=== PATIENT | female | born 1975 | race Caucasian/White ===

== ENCOUNTER 2019-10-27 23:37 | Emergency (ER) | payer OTHER, SELFPAY ==
--- NOTE | ~2019-10-27 | XR_ITS ---
EXAMINATION: XR G tube replacement w image DATE: 10/28/2019 02:27 INDICATION: Jejunostomy tube placement. TECHNIQUE: A single supine view of the abdomen was obtained. COMPARISON: None. FINDINGS: There are no dilated loops of bowel. There is a jejunostomy tube in expected position. Ther e is contrast in the jejunum including around the balloon. A 2.7 cm foreign body in left upper quadra nt may be coil embolization. IMPRESSION: 1. Jejunostomy tube in expected position. Reviewed, dictated and finalized at location A. GENCY ROOM DOCTOR
[2019-10-27 23:41] VITALS: BP 108/62; PULSE 73; RESP 16; TEMP 36.7; O2SAT 100
--- NOTE | 2019-10-28 00:26 | ED.GENADULT ---
HPI - General Adult General Chief complaint: Unspecified Stated complaint: clogged g-tube Time Seen by Provider: 10/28/19 00:22 Source: patient and RN notes reviewed Mode of arrival: EMS Limitations: no limitations History of Present Illness HPI narrative: Pt is a 44 y/o female who presents to the ED with c/o G-tube complications starting this evening. She notes that she has a Hx of stomach perforation, and states that she has had a G-tube in place for roughly the past 1.5 years. Pt notes that she hasn't had any difficulties with her current G-tube until this evening. She states that her tube became clogged while at [facility] earlier this evening. Pt notes that [place] staff tried unclogging the tube without any success. She currently reports lt sided ABD pain radiating into her back, but denies any fever or chills. MD complaint: G-tube Complications Location: abdomen Associated symptoms: other (lt sided ABD pain radiating into back) Related Data Allergies Allergy/AdvReac Type Severity Reaction Status Date / Time No Known Allergies Allergy Verified 10/28/19 02:33 Review of Systems Review of Systems: All systems reviewed & are unremarkable except as noted in HPI and below Constitutional: Constitutional: Denies chills and Denies fever(s) Gastrointestinal: Gastrointestinal: Reports abdominal pain (lt sided ABD pain radiating into back) and Reports other (clogged G-tube) PMFSH Past Medical History Medical History Gastric perforation Port-A-Cath in place Stomach ulcer Surgical History Surgical History Gastrostomy tube in place Social History Social History Smoking status: Never smoker Exam Const: General: cooperative, comfortable, no acute distress, well developed, alert and awake; No confusion Nutritional Appearance: other (frail) Orientation/consciousness: oriented to person, oriented to place, oriented to time, patient oriented x3 and No confusion Limitations: no limitations HENMT: Head: normal to inspection, normocephalic and atraumatic Chest: Chest palpation & inspection: other (Port-a-Cath in place in rt upper chest) Resp: Effort & Inspection: normal respiratory effort, able to speak in complete sentences, no respiratory distress and not tachypneic Auscultation: clear to auscultation bilaterally, no crackles, no rales, no rhonchi and no wheezes Cardio: Rate: regular rate Rhythm: regular rhythm GI: Inspection: other (G-tube in place) GI Palp: No abdominal tenderness, Yes Soft to palpation, No Tenderness to palpation present (GI), No Guarding due to palpation present (GI), No Rigid due to palpation and No Rebound tenderness present Auscultation: normal bowel sounds : General: Yes no CVA tenderness Skin: General skin exam: normal color, no rashes or lesions noted, elasticity normal and turgor normal Neuro: General: oriented to person, oriented to place, oriented to time, patient oriented x3, tone normal, moves all extremities, Normal light touch and pain sensation, no meningeal signs, no focal motor deficits, CN's II-XI intact bilaterally and No confusion Cranial nerves: Yes Equal, round and reactive pupils present Speech: No Abnormal speech present Sensory Exam: No Sensory deficit (Neuro) Extrem: General: normal to inspection, full ROM and capillary refill normal Psych: Appearance: grossly normal and well kempt Mental Status: mental status grossly normal Speech and movement: Normal speech and movement present Affect: normal affect Attitude: cooperative Thought process: Normal thought process present Thought content: Yes Normal thought content present Insight: Good insight present (Psych) Judgement: Good judgement present (Psych) Course Vital Signs Vital signs: Vital Signs Temperature 36.7 C 10/27/19 23:41 Pulse Rate 73 10/27/19 23:41
[2019-10-28] MEDS: HYDROMORPHONE HCL 1 MG/ML INJ 0.5 MG IV PUSH (01:07)
--- NOTE | 2019-10-28 01:38 | PC.NURSE ---
per edp, dried to irrigate g-tube, md maren made aware
[2019-10-28 03:16] VITALS: BP 110/59; PULSE 71; RESP 16; TEMP 36.8; O2SAT 100
--- NOTE | 2019-10-28 03:36 | PC.NURSE ---
Called [facility] at [phone] to transport patient.. [facility] here at [phone]
--- NOTE | 2019-10-29 00:13 | ED.GENADULT ---
HPI - General Adult General Chief complaint: Unspecified Stated complaint: clogged g-tube Time Seen by Provider: 10/28/19 00:22 Source: patient and RN notes reviewed Mode of arrival: EMS Limitations: no limitations History of Present Illness Location: abdomen Associated symptoms: other (lt sided ABD pain radiating into back) Related Data Allergies Allergy/AdvReac Type Severity Reaction Status Date / Time No Known Allergies Allergy Verified 10/28/19 02:33 Review of Systems Review of Systems: All systems reviewed & are unremarkable except as noted in HPI and below Constitutional: Constitutional: Denies body ache(s), Denies chills, Denies excessive sweating, Denies fatigue, Denies fever(s), Denies headache(s), Denies lethargy, Denies malaise, Denies weakness and Denies weight loss Eyes: Eyes: Denies blurry vision, Denies change in vision and Denies loss of vision ENT: Denies dizziness, Denies ear discharge, Denies headache(s), Denies lip swelling, Denies epistaxis, Denies nasal congestion, Denies neck pain, Denies throat swelling and Denies tongue swelling Cardiovascular: Cardiovascular: Denies chest pain, Denies chest pain at rest, Denies chest pain with activity, Denies diaphoresis, Denies rapid heart rate, Denies edema, Denies irregular heart rhythm, Denies lightheadedness, Denies palpitations, Denies dyspnea and Denies dyspnea on exertion Respiratory: Respiratory: Denies chest congestion, Denies cough, Denies hemoptysis, Denies dyspnea and Denies dyspnea on exertion Gastrointestinal: Gastrointestinal: Denies abdominal pain, Denies melena, Denies hematochezia, Denies diarrhea, Denies nausea, Denies vomiting and Denies hematemesis Musculoskeletal: Musculoskeletal: Denies abnormal gait, Denies deformity, Denies joint swelling, Denies limited range of motion, Denies neck pain and Denies numbness Neurologic: Denies Abnormal speech present, Denies abnormal gait, Denies confusion, Denies dizziness, Denies headache(s), Denies focal weakness, Denies loss of vision, Denies numbness, Denies Other visual disturbances, Denies Sensory deficit (Neuro) and Denies weakness Psychiatric: Psychiatric: Denies confusion, Denies depression, Denies auditory hallucinations, Denies homicidal ideation and Denies suicidal ideation Endocrine: Endocrine: Denies cold intolerance, Denies excessive sweating, Denies fatigue, Denies heat intolerance and Denies palpitations Hematologic/Lymphatic: Hematologic/Lymphatic: Denies easy bleeding and Denies easy bruising Allergic/Immunologic: Allergic/Immunologic: Denies lip swelling, Denies throat swelling and Denies tongue swelling PMF Past Medical History Medical History Gastric perforation Port-A-Cath in place Stomach ulcer Surgical History Surgical History Gastrostomy tube in place Social History Social History Smoking status: Never smoker Exam Const: General: cooperative, comfortable, no acute distress, alert and awake Orientation/consciousness: oriented to person, oriented to place, oriented to time, patient oriented x3 and No confusion Limitations: no limitations HENMT: Head: normal to inspection, normocephalic and atraumatic Ears: hearing grossly normal bilaterally, TM normal on the right and TM normal on the left General nose exam: Normal external nose present, Normal nares present and No nasal discharge present Face and sinus: normal facial exam Mouth: Yes Normal oral and palatal mucosa present, Yes lip normal, Yes tongue normal and Yes oropharynx normal Throat: posterior oropharynx normal, tonsils normal and uvula midline Eyes: General: appearance normal, both eyes and all related structures Pupils: Equal, round and reactive pupils present EOM: EOMs intact bilaterally Neck: Neck: normal visual inspection, full ROM, no lymphadenopathy and no men
== END 2019-10-28 03:40 ==
PROVIDERS: Emergency Provider Emergency Medicine
DX: K94.23 Gastrostomy malfunction (principal)
CPT/HCPCS: 49450; 96374; 99284; J1170

== ENCOUNTER 2019-10-30 13:15 | Inpatient (IN) | payer OTHER, SELFPAY ==
[2019-10-30 13:13] VITALS: BP 128/83; PULSE 74; RESP 13; TEMP 36.4; O2SAT 100
--- NOTE | 2019-10-30 13:19 | ED.RECABL ---
HPI - Recheck/Abnormal Lab/Rx General Chief Complaint: Recheck/Abnormal Lab/Rx Stated Complaint: abnormal labs Time Seen by Provider: 10/30/19 13:17 Source: patient Mode of arrival: EMS Limitations: no limitations History of Present Illness HPI narrative: A 44 y/o female pt presents to the ED, via EMS, from [facility], with c/o abnormal potassium level. Pt is in the nursing facility for short term rehabilitation for TPN following complications from a gastric bypass surgery she had 10 years ago. She states she was hospitalized at [facility] for ulcers, and a hole in her stomach, and was discharged, with TPN, to [facility] to help with strengthening. Pt has a feeding tube and is NPO besides ice chips until her follow-up with her surgeon on November 22. Dr. Donato Pope at [facility] advised pt be seen in the ED for a potassium level of 2.7. Pt is complaining of generalized weakness, ABD pain, and upper back pain, but denies fever, SOB, or CP. She rates her pain as an 8 on the pain scale and notes her pain is worsening since being discharged from [facility]. complaint: abnormal lab (potassium 2.7) Initial visit (ago): hour(s) Description of abnormal result: potassium level 2.7 Context: other (sent from nursing facility for abnormal lab result) Associated symptoms: abdominal pain and other (upper back pain, generalized weakness) Related Data Allergies Allergy/AdvReac Type Severity Reaction Status Date / Time No Known Allergies Allergy Verified 10/28/19 02:33 Review of Systems Review of Systems: All systems reviewed & are unremarkable except as noted in HPI and below Constitutional: Constitutional: Denies fever(s) and Reports weakness (generalized) Cardiovascular: Cardiovascular: Denies chest pain Respiratory: Respiratory: Denies dyspnea Gastrointestinal: Gastrointestinal: Reports abdominal pain Musculoskeletal: Musculoskeletal: Reports back pain (upper) [facility] Past Medical History Medical History (Updated 10/30/19 @ 15:01 by Carey Martínez MD) Gastric perforation On total parenteral nutrition (TPN) Port-A-Cath in place Stomach ulcer Surgical History Surgical History (Updated 10/30/19 @ 14:52 by Lacho Ramirez ICEX) Gastrostomy tube in place History of gastric bypass Social History Social History (Updated 10/30/19 @ 14:53 by Lacho Ramirez ICEX) Smoking status: Never smoker Living arrangements: half-way Additional living arrangements comments: short term rehabilitation Exam Const: General: cooperative, no acute distress and alert Nutritional Appearance: malnourished Orientation/consciousness: patient oriented x3 Limitations: no limitations HENMT: Mouth: Yes lip normal and Yes dry mucous membranes Resp: Effort & Inspection: normal respiratory effort Auscultation: clear to auscultation bilaterally Cardio: Rate: regular rate Rhythm: regular rhythm GI: GI Palp: Yes abdominal tenderness (diffuse) and Yes Soft to palpation Auscultation: normal bowel sounds Skin: General skin exam: normal color Neuro: General: patient oriented x3 Cognition (Neuro): normal cognition Speech: normal speech Extrem: General: normal to inspection, full ROM and no clubbing, cyanosis or edema Psych: Mental Status: mental status grossly normal Affect: normal affect Attitude: cooperative Course Course Emergency Course: Patient with severe hypokalemia, currently on TPN after surgery for perforated ulcer. Patient is also status gastric bypass surgery in the remote past. Patient significantly malnourished in appearance. IV potassium initiated in the emergency department through patient's Port-A-Cath and patient admitted to hospitalist service for further care of her hypokalemia. Consultations Consultation #1: Discussed case with PAVEL Almonte for the hospitalist, Dr. Fitzgerald. Accepts admission. Date: 10/30/19 Time: 14:20 Vital Signs Vital signs: Vital Signs Temperature 97.6 F 10/30/19 13:13 Pul
--- NOTE | 2019-10-30 13:25 | ECG_ITS ---
SINUS RHYTHM WITH SHORT CA INTERVAL CANNOT RULE OUT SEPTAL INFARCT, AGE INDETERMINATE BORDERLINE ST-T WAVE ABNORMALITY- LATERAL LEADS ABNORMAL ECG Electronically Signed On 10-30-2019 17:33:14 GROUNDS AND NURSERY SPECIALIST by Saurabh Cook D.O. NO PREVIOUS ECG AVAILABLE FOR COMPARISON [facility]
[2019-10-30 13:50] LABS: Basophils Percent Auto 0.5 % (0.2-1.2); Eosinophils Absolute Auto 0.2 K/mm3 (0-0.3); Eosinophils Percent Auto 2.4 % (0-4.4); Immature Granulocyte Absolute 0.02 K/mm3 (0.00-0.031); Immature Granulocyte Percent A 0.3 % (0-0.5); Lymphocytes Absolute Auto 2.19 K/mm3 (0.9-3.2); Lymphocytes Percent Auto 35.2 % (18.3-44.2); Mean Corpuscular HGB Conc 33.3 g/dl (32-36); Mean Corpuscular Hemoglobin 31.9 pg (26-34); Mean Corpuscular Volume 95.7 fl (80-100); Monocytes Absolute Auto 0.7 K/mm3 (0.1-0.6); Monocytes Percent Auto 10.8 % (2.6-8.5); Neutrophils Absolute Auto 3.2 K/mm3 (1.3-6.7); Neutrophils Percent Auto 50.8 % (45.5-73.1); Platelet Count Result 543 k/mm3 (150-375); Red Blood Count 2.82 M/mm3 (4.2-5.4); Red Cell Distribution Width 19.1 % (11.5-14.5); White Blood Count 6.2 K/mm3 (4.5-10.0)
[2019-10-30 14:10] LABS: Alanine Aminotransferase 18 U/L (4-35); Albumin Level 2.6 g/dL (3.5-5.1); Alkaline Phosphatase 139 U/L (38-126); Aspartate Amino Transferase 19 U/L (14-36); Bilirubin,Total 0.2 mg/dL (0.2-1.3); Blood Urea Nitrogen 23 mg/dL (7-17); Calcium 7.7 mg/dL (8.4-10.2); Carbon Dioxide 29 mmol/L (22-30); Chloride 97 mmol/L (98-107); Estimated CRCL calculation 94 ml/min; Estimated Glomerular Filt Rate > 60; Glucose 90 mg/dL (65-105); Magnesium 2.2 mg/dL (1.6-2.3); Phosphorus 3.2 mg/dL (2.5-4.5); Potassium 2.6 mmol/L (3.4-5.0); Sodium 136 mmol/L (137-145)
[2019-10-30] MEDS: SODIUM CHLORIDE 0.9% IV 1,000 ML 150 ML IV CONT (14:40)
--- NOTE | 2019-10-30 14:50 | PM.IMHP ---
H&P: HPI History of Present Illness Chief complaint: Hypokalemia. Narrative: Irina Damon is a 44-year-old female who was sent to the emergency department earlier today via EMS from [facility] for evaluation and treatment of hypokalemia. She had a gastric bypass done about 10 years ago, and has had issues with peptic ulcers since that time. A couple of years ago she had a perforated ulcer and about a month ago she once again began having issues with ulcers. She was transferred from the local hospital in [place], [place] to [facility] and was there for approximately 2 weeks time. She did not have surgical intervention at that time, but is currently on TPN and has a follow-up with her surgeon in the coming weeks. She has been at [facility] for approximately 1 week for short-term rehab, and she tells me that she has been needing potassium supplementation on a daily basis. Despite this, the patient does not believe there were any changes made to her TPN. Potassium today was 2.6 and she is being admitted in this setting. At the time my evaluation, she complains of diffuse abdominal pain, dull and achy but occasionally sharp. It sounds as though she has pain on a daily basis and it is not different than baseline. She is typically given Tylenol for her pain, which she says is not strong enough and is requesting Dilaudid. She has not had fever, chills, or sweats. No recent cold or flu symptoms. She denies chest pain shortness of breath. She notes having to formed stools each day. No dysuria or hematuria. Of note, the patient's history and timeline seem to be a bit questionable and I am not certain how accurate her history is. Review of Systems Review of Systems: All systems reviewed & are unremarkable except as noted in HPI and below PMFSH Past Medical History Medical History (Updated 10/30/19 @ 15:13 by Brina Santizo PA-C) Peptic ulcer disease Perforated peptic ulcer Status post exploratory laparotomy in ~ 2018 Port-A-Cath in place Surgical History Surgical History (Updated 10/30/19 @ 15:07 by Brina Santizo PA-C) Gastrostomy tube in place History of gastric bypass Approximately 2009. Status post exploratory laparotomy For reported perforated gastric ulcer in about 2018. Status post tonsillectomy and adenoidectomy Family History Family History (Updated 10/30/19 @ 15:08 by Brina Santizo PA-C) Mother Acute myocardial infarction Mother of an [place] in her sleep at age 69. Father Diabetes mellitus Heart disease Chronic kidney disease Social History Social History (Updated 10/30/19 @ 15:09 by Brina Santizo PA-C) Social History: Patient lives in [place], [place]. She is single and has no children. She has a pug that lives at home with her. 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 She smokes 1 pack of cigarettes per day off and on for about 20 years and quit 2 months ago. She denies alcohol and drug use. Living arrangements: detention Additional living arrangements comments: short term rehabilitation Meds Home Medications and Allergies Allergies Allergy/AdvReac Type Severity Reaction Status Date / Time No Known Allergies Allergy Verified 10/28/19 02:33 Vital Signs Vital Signs - 24 hr 10/30/19 13:13 Temperature 97.6 F Pulse Rate 74 Respiratory Rate 13 Blood Pressure 128/83 Pulse Oximetry 100 Exam Narrative: Exam Narrative: General: Cachectic, frail female sitting up in bed in no acute distress. She appears much older than her stated age. HEENT: Normocephalic, atraumatic. PERRL, EOMI. Sclerae anicteric. Oral mucosa moist. Most teeth are missing and those that remain appear unhealthy. Oropharynx clear. Neck: Supple. Chest: Port-A-Cath in the right anterior chest. Respiratory: Lungs are clear to auscultation bilaterally. Cardiovascular: Regular rate and rhythm wi
[2019-10-30 15:05] VITALS: BP 110/57; PULSE 77; O2SAT 100
--- NOTE | 2019-10-30 15:10 | ADMGEN ---
This patient, Irina Damon, was admitted to Medical Room 348-. Patient/family oriented to hospital policies and general routines including ID bracelet, bed and alarms, visiting hours, pain management, procedures, bathroom and other care routines, personal items, smoking policy, room service/diet, and visiting hours. Valuables list has been completed. Information on how to activate the Rapid Response Team has been discussed. Patient/Family are encouraged to report perceived risks to care and to ask questions if they do not understand what they are told or what they should do.
[2019-10-30 15:23] VITALS: BMI 15.9
[2019-10-30 15:24] VITALS: BP 116/71; PULSE 73; RESP 20; TEMP 36.4; O2SAT 100
[2019-10-30 15:51] VITALS: BMI 15.9
[2019-10-30 15:52] VITALS: BMI 15.9
[2019-10-30 16:00] VITALS: PULSE 74
--- NOTE | 2019-10-30 19:49 | PC.NURSE ---
Spoke with Elizabeth at [facility], and we clarified medications list for the patient. Pt is a poor historian.
[2019-10-30 20:00] VITALS: PULSE 76
[2019-10-30 20:55] LABS: Potassium 2.8 mmol/L (3.4-5.0)
[2019-10-30 21:14] VITALS: BP 109/64; PULSE 68; RESP 16; TEMP 36.9; O2SAT 100
[2019-10-30] MEDS: POTASSIUM CHLORIDE 20 MEQ PACKET (FOR LIQUID) 40 MEQ FEED TUBE (22:23)
[2019-10-30] MEDS: KCL 20 MEQ/SW 100 ML 100 ML 50 MEQ IVPB (22:23)
[2019-10-31] VITALS: PULSE 69
[2019-10-31] MEDS: SERTRALINE HCL 50 MG TABLET 150 MG FEED TUBE (00:27)
[2019-10-31 04:00] VITALS: PULSE 71
[2019-10-31 05:50] LABS: Hematocrit 25.6 % (37.0-47.0); Hemoglobin 8.8 g/dL (12.0-15.0); Mean Corpuscular HGB Conc 34.4 g/dl (32-36); Mean Corpuscular Hemoglobin 32.2 pg (26-34); Mean Corpuscular Volume 93.8 fl (80-100); Mean Platelet Volume 9.4 fl (7.4-10.4); Platelet Count Result 499 k/mm3 (150-375); Red Blood Count 2.73 M/mm3 (4.2-5.4); Red Cell Distribution Width 18.9 % (11.5-14.5); White Blood Count 7.7 K/mm3 (4.5-10.0)
[2019-10-31 06:00] VITALS: BP 110/62; PULSE 73; RESP 14; TEMP 36.7; O2SAT 100
[2019-10-31 06:02] LABS: Albumin Level 2.4 g/dL (3.5-5.1); Blood Urea Nitrogen 10 mg/dL (7-17); Calcium 7.9 mg/dL (8.4-10.2); Carbon Dioxide 28 mmol/L (22-30); Chloride 102 mmol/L (98-107); Estimated CRCL calculation 103 ml/min; Estimated Glomerular Filt Rate > 60; Glucose 83 mg/dL (65-105); Phosphorus 2.7 mg/dL (2.5-4.5); Potassium 3.4 mmol/L (3.4-5.0); Sodium 138 mmol/L (137-145)
[2019-10-31 08:00] VITALS: PULSE 70
[2019-10-31] MEDS: SUCRALFATE 1 GM TABLET FEED TUBE (08:48)
[2019-10-31] MEDS: LOPERAMIDE HCL 2 MG CAPSULE 4 MG FEED TUBE (08:49)
[2019-10-31] MEDS: GABAPENTIN 300 MG CAPSULE 600 MG PO (08:49)
[2019-10-31] MEDS: ONDANSETRON HCL ODT 4 MG TABLET XX (08:50)
[2019-10-31] MEDS: CHOLECALCIFEROL 1,000 UNIT TABLET 5000 UNITS FEED TUBE (08:50)
[2019-10-31] MEDS: MULTIVITAMIN HEMATINIC (*BKC) TABLET 1 TABLET FEED TUBE (08:50)
[2019-10-31] MEDS: POTASSIUM CHLORIDE 20 MEQ PACKET (FOR LIQUID) 40 MEQ FEED TUBE (11:20)
--- NOTE | 2019-10-31 11:24 | PM.DS ---
DS: Diagnosis Admitting Diagnosis Admitting Diagnosis: Hypokalemia Discharge Diagnosis (1) Hypokalemia: Code(s): E87.6 - Hypokalemia Status: Acute (2) Severe protein-calorie malnutrition: Code(s): E43 - Unspecified severe protein-calorie malnutrition Status: Acute (3) Peptic ulcer disease: Code(s): K27.9 - Peptic ulcer, site unspecified, unspecified as acute or chronic, without hemorrhage or perforation Status: Acute (4) On total parenteral nutrition (TPN): Code(s): Z78.9 - Other specified health status Status: Acute DS: Summary Hospital Course Reason for hospitalization: 44yo female on TPN with functioning GTube here for hypokalemia. Please see H&P for details. Hospital Course: Patient was seen in the emergency room. She is hemodynamically stable. Her EKG showed no significant acute findings. Blood cultures were collected secondary to the fact she has a port in place but patient is not having any fever, elevated white count or other symptoms of sepsis. Hemoglobin was low at 9. Repeat a was relatively unchanged. Platelet count slightly elevated 543 and has trended downward . Potassium was 2.6. This was replaced and this morning is 3.4. Calcium is low but most likely related to her low albumin. Continued her tube feedings. We continued majority home medications. Protonix not on her home med list but patient states that she should be on this. Patient did well is able be discharged back to the rehab facility on 10/31/2019 Time Spent with Patient Time attestation: Total time spent providing and/or coordinating discharge services:32 minutes Time spent: Greater than 30 minutes Exam Narrative: Exam Narrative: Gen - NARD Chest - CTA bilaterally, nml RR.Port-A-Cath in the right upper chest CV - RRR S1/S2 Abd - soft. Scaphoid. Positive bowel sounds. Peg tube site left of midline with dressing that is clean and dry. Ext - No pedal edema Psych - Nml mood and affect. Alert, pleasant and cooperative. Skin - Hirsute chin and jawline. DS: Data Data Completed and Pending Labs on day of discharge: Labs from last 24 hours 10/31/19 10/31/19 10/30/19 05:38 05:38 20:26 WBC 7.7 RBC 2.73 L Hgb 8.8 L Hct 25.6 L MCV 93.8 MCH 32.2 MCHC 34.4 RDW 18.9 H Plt Count 499 H MPV 9.4 Immature Gran % (Auto) Neut % (Auto) Lymph % (Auto) [place] % (Auto) Eos % (Auto) Baso % (Auto) Lymph # (Auto) [place] # (Auto) Eos # (Auto) Baso # (Auto) Abs Immat Gran (auto) Absolute Neuts (auto) Absolute Nucleated RBC Nucleated RBC % Sodium 138 Potassium 3.4 2.8 L* Chloride 102 Carbon Dioxide 28 BUN 10 D Creatinine 0.40 L Estim Creat Clear Calc 103 Estimated GFR > 60 Glucose 83 Calcium 7.9 L Phosphorus 2.7 Magnesium Total Bilirubin AST ALT Alkaline Phosphatase Total Protein Albumin 2.4 L 10/30/19 10/30/19 13:45 13:45 WBC 6.2 RBC 2.82 L Hgb 9.0 L Hct 27.0 L MCV 95.7 MCH 31.9 MCHC 33.3 RDW 19.1 H Plt Count 543 H MPV 10.0 Immature Gran % (Auto) 0.3 Neut % (Auto) 50.8 Lymph % (Auto) 35.2 [place] % (Auto) 10.8 H Eos % (Auto) 2.4 Baso % (Auto) 0.5 Lymph # (Auto) 2.19 [place] # (Auto) 0.7 H Eos # (Auto) 0.2 Baso # (Auto) 0.0 Abs Immat Gran (auto) 0.02 Absolute Neuts (auto) 3.2 Absolute Nucleated RBC 0.0 Nucleated RBC % 0.0 Sodium 136 L Potassium 2.6 L* Chloride 97 L Carbon Dioxide 29 BUN 23 H Creatinine 0.40 L Estim Creat Clear Calc 94 Estimated GFR > 60 Glucose 90 Calcium 7.7 L Phosphorus 3.2 Magnesium 2.2 Total Bilirubin 0.2 AST 19 ALT 18 Alkaline Phosphatase 139 H Total Protein 6.0 L Albumin 2.6 L Discharge Plan Discharge Attending physician on discharge: Jose Manuel Paredes Discharging Clinician: Jose Manuel Paredes Anticipated Discharge [place]
--- NOTE | 2019-11-02 11:06 | PC.NURSE ---
MRSA is negative. Dr. Reggie cordova.
--- NOTE | 2019-11-05 13:43 | PC.NURSE ---
Blood cx is negative. Dr. Paredes is aware.
== END 2019-10-31 13:23 | DRG 425 ==
LOC: ANHED 14:30 → ANH3MED 14:37
PROVIDERS: Physician Assistant; Admitting Provider Family Medicine; Emergency Provider Emergency Medicine; Visit Provider Internal Medicine
DX: E87.6 Hypokalemia (principal); Z98.84 Bariatric surgery status; Z87.11 Personal history of peptic ulcer disease; E43 Unspecified severe protein-calorie malnutrition; K27.9 Peptic ulcer, site unspecified, unspecified as acute or chronic, without hemorrhage or perforation; Z68.1 Body mass index [BMI] 19.9 or less, adult
CPT/HCPCS: 36415; 80053; 80069; 83735; 84100; 84132; 85025; 85027; 87040; 87081; 93005; 96365; 96375; 99285; A9270; J0131; J3480; J7030

== ENCOUNTER 2019-11-09 23:12 | Inpatient (IN) | payer OTHER, SELFPAY ==
--- NOTE | ~2019-11-09 | XR_ITS ---
XR chest 1V portable DATE: 11/11/2019 09:32 INDICATION: Aspiration pneumonia, pneumonitis TECHNIQUE: Portable upright AP chest on 11/11/2019 at 0926 hours COMPARISON: Portable AP chest on 11/09/2019 11/10/2019 CT chest abdomen pelvis FINDINGS: There is interval pulmonary vascular congestion and redistribution and prominence of the mi nor fissure and pulmonary interstitium, consistent with congestive changes and pulmonary interstitial and subpleural edema since 11/09/2019. There are patchy infiltrates in the central and lower lung zones, greatest in the left lower lobe. Th e infiltrates may be due to any combination of pulmonary edema, pneumonia and aspiration. Small pleur al effusions are suggested. Heart size appears within normal limits considering magnification associated with AP projection. Right Port-A-Cath catheter tip overlies the upper right atrium. IMPRESSION: Interval congestive changes, pulmonary edema and increased bilateral infiltrates since 11/09/2019 Reviewed, dictated and finalized at location B. GING COGNITIVE ENGINEER IMPRESSION: Interval congestive changes, pulmonary edema and increased bilatera l infiltrates since 11/09/2019
--- NOTE | ~2019-11-09 | CT_ITS ---
EXAMINATION: CT facial & cervical spine wo EXAM DATE: 11/09/2019 23:55 INDICATION: Fall, head injury. TECHNIQUE: Spiral CT of the facial bones was acquired in the axial plane. Coronal reformatted images were also reviewed. Spiral CT of the cervical spine was performed without contrast. Axial images we re reviewed. Coronal and sagittal reformatted images were also reviewed. The dose-length product (DL P) for this examination was 112.27 mGy-cm. The exposure was tailored according to patient size, and iterative reconstruction (ASIR) was used as additional dose reduction technique. There is no prior s tudy for comparison. FINDINGS: FACIAL CT: There are no displaced nasal bone fractures. The mandible, sinuses and orbits are intact. The orbits, globes and extraocular muscles are unremarkable. Some debris or blood within the edith al cavity. Multiple dental cavities. CERVICAL CT: There is no evidence of acute cervical fracture. The odontoid process is intact. Pre-d ens space is normal. Prevertebral soft tissue is normal. There are no soft tissue abnormalities [place] ntified. There is no disc space widening or traumatic vertebral body subluxation suspected. Vertebr al body and disc heights are well-maintained. A detailed level by level evaluation of spondylosis c an be added as addendum if requested. IMPRESSION: 1. No acute facial or cervical fracture. 2. Some debris or blood within the nasal cavity. Reviewed, dictated and finalized at location A. DESULFURIZER
--- NOTE | ~2019-11-09 | XR_ITS ---
EXAMINATION: XR chest 1V portable EXAM DATE: 11/09/2019 23:39 INDICATION: Syncope. TECHNIQUE: Portable AP frontal chest x-ray was obtained. There is no prior study for comparison. FINDINGS: Right-sided portacatheter. Line is intact. The lungs are clear. There are no pleural effus ions. The cardiomediastinal silhouette is within normal limits. There is no pneumothorax suspected. The bones and soft tissues are unremarkable. IMPRESSION: No acute cardiopulmonary findings. Reviewed, dictated and finalized at location A. ACE MECHANIC
--- NOTE | ~2019-11-09 | CT_ITS ---
EXAMINATION: CTA chest abdomen pelvis DATE: 11/10/2019 02:54 INDICATION: Upper back pain and abdominal pain TECHNIQUE: Computed tomographic angiography (CTA) of the chest, abdomen, and pelvis was performed wit hout and with 100 mL Omnipaque-350 intravenous contrast. Volume-rendered 3D-reconstructions of the ao rta and large arteries were constructed by the technologist on a separate workstation. The dose-lengt h product was 460 mGy-cm. COMPARISON: None FINDINGS: Chest: Small left pleural effusion with compressive atelectasis along the base of the left lower lobe. Patch y groundglass opacities in the lingula and left lower lobe. Right lung is clear. No pneumothorax or r ight-sided pleural effusion. Although not performed as a pulmonary embolism protocol there is excelle nt contrast opacification of the pulmonary arteries which demonstrates no pulmonary embolism. Heart s ize is normal. No pericardial effusion. Thoracic aorta is normal in caliber with no dissection. Mildl y prominent left hilar and subcarinal lymph nodes which are likely reactive. Thoracic dextrocurvature which may be positional. Mild thoracic spondylosis. Chronic appearing mild anterior wedging at T12 a nd L1. Abdomen and pelvis: Evaluation of portions of the abdomen particularly the bowels is limited by motion artifact. 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 Metallic likely embolization coils in the region of the distal splenic artery. Additional postoperative changes consistent with prior gastric b ypass procedure with small bowel anastomosis in the left lower quadrant. Ostomy left lower quadrant i s a percutaneous jejunostomy tube with bulb inflated within the bowel in the right hemipelvis. No bow el obstruction. Normal short appendix versus appendiceal stump without surrounding inflammatory stran ding to suggest acute appendicitis. Heterogeneous enhancement of the liver likely related to arterial phase of contrast. Small amount of ascites scattered throughout the abdomen and pelvis including around the otherwise normal-appearing g allbladder. Pancreas, bilateral adrenal gland and kidneys are normal. There is mild mesenteric, perip ortal and body wall edema. Bladder, uterus and adnexa are unremarkable. No pathologically enlarged ab dominal or pelvic lymphadenopathy. Mild scattered degenerative skeletal changes. Bones are otherwise unremarkable. Mild scattered atherosclerotic disease along the abdominal aorta and bilateral common iliac arteries without hemodynamically significant stenosis. No aneurysm or dissection. 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 IMPRESSION: 1. No aortic aneurysm or dissection. 2. Airspace disease in the left lower lobe with differential including pneumonia, aspiration pneumoni tis and atelectasis with small left pleural effusion. 3. Nonspecific mesenteric, periportal and body wall edema with small amount of ascites in the abdomen and pelvis. 4. Postoperative changes including splenectomy and splenic artery embolization, gastric bypass proce dure and left lower quadrant percutaneous jejunostomy tube placement. Reviewed, dictated and finalized at location A. SWING DEVELOPER IMPRESSION: 1. No aortic aneurysm or dissection. 2. Airspace disease in the left lower lobe with differential including pneumoni a, aspiration pneumonitis and atelectasis with small left pleural effusion. 3. Nonspecific mesenteric, periportal and body wall edema with small amount of ascites in the abdomen and pelvis. 4. Postoperative changes including splenectomy and splenic artery embolization , gastric bypass procedure and left lower quadrant percutaneous jejunostomy tub e placement.
--- NOTE | ~2019-11-09 | CT_ITS ---
EXAMINATION: CT brain wo con EXAM DATE: 11/09/2019 23:55 INDICATION: Syncope. Posterior head injury and pain. TECHNIQUE: Spiral CT of the head was performed without contrast. Axial, coronal and sagittal images were reviewed. The dose-length product (DLP) for this examination was 605.33 mGy-cm. The exposure w as tailored according to patient size, and iterative reconstruction (ASIR) was used as additional dos e reduction technique. There is no prior study for comparison. FINDINGS: There is no acute intraparenchymal hemorrhage. No evidence of intraparenchymal brain mass lesion. No evidence of acute infarction. There is no mass effect or midline shift. The ventricles are normal in size. There are no extra-axial collections. There are no acute calvarial fractures. T he orbits are unremarkable. Soft tissue is unremarkable. The visualized sinuses and mastoid air angie ls are well aerated. IMPRESSION: No acute intracranial findings. Reviewed, dictated and finalized at location A. AND GAME WARDEN
--- NOTE | 2019-11-09 23:17 | ED.FALL ---
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 Pt states that she felt diaphoretic and dizzy before she lost consciousness while walking outside. Pt states that she face planted and landed on the right side of her face. Pt is on TPN and has a G-tube placed. Pt states that she was supposed to be hooked up to the TPN at 10 PM, but she states that she was unable to tonight d/t her fall. Pt states that she gets the full amount of TPN. Pt has been taking Tylenol, but with no relief. Pt also reports diaphoresis, subjective fever, and back pain, but denies nausea and vomiting. MD complaint: fall Onset (ago): minute(s) Fall from: standing Place fall occurred: [facility] (outside of) Loss of consciousness: yes Prolonged down time: unclear Symptoms prior to fall: dizziness and other (diaphoretic) Location of injury: face (right sided) Associated symptoms (after fall): other (diaphoresis, subjective fever, back pain, right sided facial pain) Related Data Home Medications Medication Instructions Recorded Confirmed artificial saliva (cmce-lytes) 3 spray PO TID PRN 10/30/19 11/10/19 ergocalciferol (vitamin D2) 6.3 ml FEEDING TUBE WEEKLY 10/30/19 11/10/19 gabapentin 600 mg FEEDING TUBE TID 10/30/19 11/10/19 hydroxyzine HCl 10 mg FEEDING TUBE QID PRN 10/30/19 11/10/19 iron sucrose 500 mg IV WEEKLY 10/30/19 11/10/19 lidocaine 1 patch TOPICAL DAILY 10/30/19 11/10/19 loperamide 4 mg FEEDING TUBE QID PRN 10/30/19 11/10/19 bdotvagn-unf-tnlybab gluconate 15 ml FEEDING TUBE BID 10/30/19 11/10/19 [Centrum] sertraline 150 mg FEEDING TUBE HS 10/30/19 11/10/19 sucralfate 1 g FEEDING TUBE QID 10/30/19 11/10/19 acetaminophen 650 mg PO Q6H PRN 11/10/19 11/10/19 mvi, adult no.4 with vit K 15 ml IV DAILY 11/10/19 11/10/19 [Infuvite Adult] Allergies Allergy/AdvReac Type Severity Reaction Status Date / Time No Known Allergies Allergy Verified 10/28/19 02:33 Review of Systems Review of Systems: All systems reviewed & are unremarkable except as noted in HPI and below Constitutional: Constitutional: Reports fever(s) (subjective) ENT: Reports other (right sided facial pain) Cardiovascular: Cardiovascular: Reports diaphoresis Gastrointestinal: Gastrointestinal: Denies nausea and Denies vomiting Musculoskeletal: Musculoskeletal: Reports back pain Neurologic: Reports dizziness and Reports syncope PMF Past Medical History Medical History On total parenteral nutrition (TPN) Peptic ulcer disease Perforated peptic ulcer Status post exploratory laparotomy in ~ 2017 Port-A-Cath in place Severe protein-calorie malnutrition Surgical History Surgical History Gastrostomy tube in place History of gastric bypass Approximately 2009. Status post exploratory laparotomy For reported perforated gastric ulcer in about 2017. Status post tonsillectomy and adenoidectomy Family History Family History Mother Acute myocardial infarction Mother of an NM in her sleep at age 69. Father Diabetes mellitus Heart disease Chronic kidney disease Social History Social History Social History: Patient lives in [place], [place]. She is single and has no children. She has a pug that lives at home with her. 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 She smokes 1 pack of cigarettes per day off and on for about 20 years and quit 2 months ago. She kira
--- NOTE | 2019-11-09 23:21 | ECG_ITS ---
Measurements Intervals Huss[place] Rate: 113 P: 59 IL: 115 QRS: 81 QRSD: 86 T: 66 QT: 324 QTc: 445 Interpretive Statements SINUS TACHYCARDIA WITH SHORT IL INTERVAL LOW QRS VOLTAGE IN PRECORDIAL LEADS BORDERLINE R WAVE PROGRESSION, ANTERIOR LEADS SUBTLE ST ELEVATION IN ANTEROSEPTAL LEADS- CONSIDER ACUTE INJURY OR EARLY REPOLARIZATION BASELINE WANDER- V1-V2 ABNORMAL ECG Electronically Signed On 11-10-2019 7:14:01 HOT STONE SETTER by Saurabh Cook D.O.
[2019-11-09 23:38] VITALS: BP 90/56; PULSE 116; RESP 22; TEMP 36.8; O2SAT 98
[2019-11-09] MEDS: LACTATED RINGERS 1,000 ML 999 ML IV CONT (23:45)
[2019-11-10] VITALS (22 sets, daily range): BP systolic 79–113; BP diastolic 45–72; PULSE 91–137; RESP 15–28; TEMP 36.6–38.9; O2SAT 94–100; BMI 16.7
--- NOTE | 2019-11-10 00:11 | PC.NURSE ---
patient requesting dilaudid at this time, notified, no new orders.
[2019-11-10] MEDS: LACTATED RINGERS 1,000 ML 999 ML IV CONT (01:21)
[2019-11-10 01:26] LABS: Add Urine Microscopic? YES; Appearance Urine Clear (Clear); Bacteria Urine Trace /hpf; Bilirubin Urine Negative (Negative); Blood Urine Negative (Negative); Color Urine Yellow (Yellow); Glucose Urine UA Negative (Negative); Ketones Urine Negative (Negative); Leukocyte Esterase Ur Trace LEU/UL (Negative); Nitrate Urine Negative (Negative); Protein Urine Negative (Negative); RBC Urine 0-2 /hpf (0-2); Specific Grav Ur 1.015 (1.001-1.035); Squamous Epithelial Cell Urine Occasional /hpf (Few); Urobilinogen Urine Negative mg/dL (<2.0)
[2019-11-10 01:39] LABS: Basophils Percent Auto 0.2 % (0.2-1.2); Immature Granulocyte Absolute 0.21 K/mm3 (0.00-0.031); Immature Granulocyte Percent A 0.8 % (0-0.5); Lymphocytes Absolute Auto 1.59 K/mm3 (0.9-3.2); Mean Corpuscular HGB Conc 30.6 g/dl (32-36); Mean Corpuscular Hemoglobin 32.1 pg (26-34); Mean Platelet Volume 10.7 fl (7.4-10.4); Monocytes Absolute Auto 0.8 K/mm3 (0.1-0.6); Monocytes Percent Auto 3.2 % (2.6-8.5); Neutrophils Absolute Auto 23.7 K/mm3 (1.3-6.7); Neutrophils Percent Auto 89.8 % (45.5-73.1); Nucleated Red Blood Cells Absolute Auto 0.1 K/mm3 (0.0-0.012); Nucleated Red Blood Cells Perc 0.4 % (0.0-0.2); Platelet Count Result 433 k/mm3 (150-375); Red Cell Distribution Width 19.8 % (11.5-14.5); White Blood Count 26.4 K/mm3 (4.5-10.0)
[2019-11-10 01:45] LABS: Hematocrit 14.7 % (37.0-47.0); Hemoglobin 4.5 g/dL (12.0-15.0)
[2019-11-10 01:46] LABS: Platelet Estimate Adequate (Adequate)
[2019-11-10 01:47] LABS: Hypochromasia 2+ (NORMAL); Macrocytosis 1+ (NORMAL)
[2019-11-10 01:48] LABS: Ethanol < 10 mg/dL (<10); Lactic Acid Reflex 2.7 mmol/L (0.7-2.1)
[2019-11-10 01:49] LABS: Stomatocytes 1+ (NORMAL)
[2019-11-10 01:50] LABS: INR 1.1; Partial Thromboplastin Time 31.9 SECONDS (22.3-36.8); Prothrombin Time 13.7 Seconds (11.1-14.7)
[2019-11-10 01:59] LABS: Alanine Aminotransferase 31 U/L (4-35); Albumin Level 2.3 g/dL (3.5-5.1); Alkaline Phosphatase 149 U/L (38-126); Aspartate Amino Transferase 47 U/L (14-36); Bilirubin,Total 0.2 mg/dL (0.2-1.3); Blood Urea Nitrogen 11 mg/dL (7-17); Calcium 7.4 mg/dL (8.4-10.2); Carbon Dioxide 22 mmol/L (22-30); Chloride 99 mmol/L (98-107); Estimated Glomerular Filt Rate > 60; Glucose 87 mg/dL (65-105); Potassium 3.3 mmol/L (3.4-5.0); Sodium 130 mmol/L (137-145)
[2019-11-10 02:06] LABS: Magnesium 1.6 mg/dL (1.6-2.3)
[2019-11-10 02:30] LABS: Hematocrit 13.3 % (37.0-47.0); Hemoglobin 4.2 g/dL (12.0-15.0)
[2019-11-10 04:31] LABS: Reflex Lactic Acid Yes or No Add Lactic
--- NOTE | 2019-11-10 05:06 | PM.IMHP ---
H&P: HPI History of Present Illness Chief complaint: SEVERE SEPSIS,PNEUMONIA,ANEMIA Narrative: This is a 44 year [facility] suffering an acute syncopal episode and collapse while ambulating tonight. The patient is known to be on TPN therapy secondary to malnutrition which has resulted from bariatric gastric bypass surgery. Tonight the patient was ambulating when suddenly she felt very lightheaded and dizzy. She remembers reaching out towards the wall before passing out and waking up on the ground. The right side of her face and head was hurting and she believes she struck her head on the ground. She denies any other discomfort. The patient has a history of previous gastric ulcers following her bypass surgery and does not take any NSAIDS. She only takes acetaminophen for pain. Over the past month she has had epigastric abdominal pain that has not worsened recently. She denies taking any blood thinnners. She also denies any nausea, vomiting, diarrhea, rectal bleeding, dark black stools, hematuria or vaginal bleeding. She currently is also complaining of a diffuse headache but denies any chest pain, cough, palpitations, dysuria, hematuria, or focal neurological symptoms. The patient was evaluated in the ER this morning and found to have a low H/H of 4.2/13.3. She was also found to be severely septic with a WBC count of 26,400, fever of 38.8 degrees C, HR 124 bpm, RR 27, and an elevated lactic acid of 2.7. The patient has been started on wide spectrum antibiotics and blood cultures have been obtained. pRBC transfusion has been ordered. Diesel Maintenance Electrician, Dr. Castillo has been consulted. Review of Systems Review of Systems: All systems reviewed & are unremarkable except as noted in HPI and below PMFSH Past Medical History Medical History On total parenteral nutrition (TPN) Peptic ulcer disease Perforated peptic ulcer Status post exploratory laparotomy in ~ 2018 Port-A-Cath in place Severe protein-calorie malnutrition Surgical History Surgical History Gastrostomy tube in place History of gastric bypass Approximately 2009. Status post exploratory laparotomy For reported perforated gastric ulcer in about 2018. Status post tonsillectomy and adenoidectomy Family History Family History Mother Acute myocardial infarction Mother of an RI in her sleep at age 69. Father Diabetes mellitus Heart disease Chronic kidney disease Social History Social History Social History: Patient lives in [place], [place]. She is single and has no children. She has a pug that lives at home with her. 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 She smokes 1 pack of cigarettes per day off and on for about 20 years and quit 2 months ago. She denies alcohol and drug use. Smoking packs per day: 1 Smoking cigarettes per day: 20.0 Years smoked: 20 Smoking pack-years: 20.00 Smoking status: Former smoker Tobacco type: cigarettes Second hand tobacco smoke exposure: No Alcohol intake: never Substance use: never Additional living arrangements comments: short term rehabilitation Gender identity (if verbalized by the patient): Female Spiritual care concerns: No Agree to blood products: Yes Meds Home Medications and Allergies Home Medications Medication Instructions Recorded Confirmed Type artificial saliva (cmce-lytes) 3 spray PO TID PRN 10/30/19 11/10/19 History ergocalciferol (vitamin D2) 6.3 ml FEEDING TUBE WEEKLY 10/30/19 11/10/19 History gabapentin 600 mg FEEDING TUBE TID 10/30/19 11/10/19 History hydroxyzine HCl 10 mg FEEDING TUBE QID PRN 10/30/19
--- NOTE | 2019-11-10 05:50 | ADMGEN ---
This patient, Jocelyn Damon, was admitted to Intensive Care Unit-1. Patient/family oriented to hospital policies and general routines including ID bracelet, bed and alarms, visiting hours, pain management, procedures, bathroom and other care routines, personal items, smoking policy, room service/diet, and visiting hours. Valuables list has been completed. Information on how to activate the Rapid Response Team has been discussed. Patient/Family are encouraged to report perceived risks to care and to ask questions if they do not understand what they are told or what they should do.
[2019-11-10] MEDS: MAGNESIUM SULF 2 GM/WATER 50ML 2 GM/50 ML BAG IVPB (08:25)
[2019-11-10] MEDS: SODIUM CHLORIDE 0.9% IV 250 ML 30 ML IV CONT (08:40)
[2019-11-10] MEDS: PANTOPRAZOLE SODIUM IV 40 MG VIAL IV PUSH ×2 (08:41→23:00)
--- NOTE | 2019-11-10 09:37 | WPDCNINT ---
Assessment and Plan Assessment and plan (1) Septic shock: Code(s): A41.9 - Sepsis, unspecified organism; R65.21 - Severe sepsis with septic shock Status: Acute Assessment and Plan: septic shock likely related to sepsis, hemorrhagic. Elevated lactic acid most likely related to decreased end organ perfusion due to severe anemia - patient with possible aspiration pneumonitis /pneumonia on CT chest - started on Zosyn and vancomycin, - cultures have been obtained and pending - patient was started on Levophed, will target systolic blood pressure > 90 mmHg (2) Severe anemia: Code(s): D64.9 - Anemia, unspecified Status: Acute Assessment and Plan: patient with severe anemia. she stated that she had some hematemesis a month back but denies any hematemesis, melena or blood loss recently. - Patient be transfuse 2 units of packed RBCs, for hemoglobin of 4.2 - recheck hemoglobin every 6 hours and transfuse as necessary - patient has been started on Protonix IV q.12 hours - GI has been consulted (3) Hypokalemia: Code(s): E87.6 - Hypokalemia Status: Acute Assessment and Plan: potassium replaced (4) Severe protein-calorie malnutrition: Code(s): E43 - Unspecified severe protein-calorie malnutrition Status: Acute Assessment and Plan: patient with severe protein calorie malnutrition likely due to gastric bypass surgeries, bowel perforation surgeries. Patient has a Port-A-Cath and was on TPN. Patient also has a J-tube through which she gets her medications (5) DVT prophylaxis: Code(s): Z29.9 - Encounter for prophylactic measures, unspecified Status: Acute Assessment and Plan: SCDs (6) Fall: Code(s): W19.XXXA - Unspecified fall, initial encounter Status: Acute Assessment and Plan: patient had a fall/syncopal episode, likely related to hypotension, severe anemia, shock - CT scan of the facial bones and neck did not show any acute fractures Additional Plan discussed with patient in detail and updated her with her condition and plan of care. I answered all questions. Code status: Full code Critical care time spent: 41 minutes Due to a high probability of clinically significant, life threatening deterioration, the patient required my highest level of preparedness to intervene emergently and I personally spent this critical care time directly and personally managing the patient. This critical care time included obtaining a history; examining the patient; pulse oximetry; ordering and review of studies; arranging urgent treatment with development of a management plan; evaluation of patient's response to treatment; frequent reassessment; and discussions with other providers. It was exclusive of separately billable procedures and treating other patients and teaching time. Please see Assessment and Plan section and the rest of the note for further information on patient assessment and treatment Roof Bolter Operator Consult Note Consult date: 11/10/19 Time Seen: 06:55 HPI: Jocelyn Damon is a 44 year old female with past medical history of peptic ulcer disease, perforated peptic ulcer status post ex lap in 2018, Port-A-Cath for severe protein calorie malnutrition presented from [place] with syncope and collapse hitting her right side of her head. Pt has been on TPN for over a month since she has been losing weight despite being on tube feeds thru a J-tube. She stated that she had hemetemesis about one month back, when she visited her surgeon at [facility], who stated that she needs to be placed on TPN, get stronger for a repeat surgery. Patient also complained of epigastric pain over the past month. She denies any NSAIDs or blood thinners. Denies any hematemesis, melena, nausea, vomiting. Patient has been complaining of some diarrhea which is chronic. Patient also complains of headache after the fall. CT scan of the face
[2019-11-10] MEDS: SODIUM CHLORIDE 0.9% IV 250 ML 30 ML (10:51)
[2019-11-10 12:05] LABS: Hematocrit 22.5 % (37.0-47.0); Hemoglobin 7.4 g/dL (12.0-15.0)
[2019-11-10 12:17] LABS: Lactic Acid 0.5 mmol/L (0.7-2.1)
[2019-11-10 12:21] LABS: IFOB Positive Control Positive; Immunochemical Fecal Occult Bl Positive (N)
--- NOTE | 2019-11-10 13:01 | WPDGICN ---
Assessment and Plan Additional Plan This is a 44-year-old white female patient mass to see because of anemia. Patient gives a history of gastric bypass surgery 10 years ago. She apparently had a perforation of her stomach several years ago that was attributed to ulcerations. She underwent surgery and a feeding tube was placed is uncertain whether this was a G-tube for a J-tube. Since that time has been maintained on both tube feedings and oral intake. One month ago was at [facility] because of GI bleeding apparently she had hematemesis. She underwent endoscopy that revealed ulcer disease. At that time TPN was implemented. She states only over the recent week or so has she been allowed to have some small amount of oral intake. She was hospitalized today [facility] within the last 2 weeks. With electrolyte imbalance. She subsequently was discharged to rehab. Where she became very weak yesterday fell down and hit her head prompting her to be sent back to the hospital. In the emergency room she was found to have a significant decline in hemoglobin from recent hospital stay. She denies any recent GI bleeding. She denies abdominal pain. She denies blood in her urine. Denies blood in her stool. She has had no vomiting. Past medical history is as stated. She is status post perforated ulcer in about 2018. History of gastric bypass 2009 she has had a G-tube in place during her most recent surgery. She has a prior history of tonsillectomy. Current medications include TPN but also vitamin D, gabapentin, hydroxyzine, iron, lidocaine, loperamide, sertraline and Carafate. No known drug allergies. Physical exam reveals her to be alert. She is anicteric. She has poor dentition. Lungs are clear. Heart is without murmur. Abdomen is soft midline scar is noted. She is tender about site of her G-tube. G-tube is the type that appears to have an internal balloon. In general she is somewhat thin and cachectic. Laboratory reveals WBC 26 K, hematocrit 22, hemoglobin 7.4, MCV 105. Total bilirubin 0.2, AST 47, ALT 31, alk-phos 149, albumin 2.3. Impression 1. Anemia. Significant decline from hospitalization 2 weeks ago. I am somewhat concerned over GI bleeding. She has a history of significant ulcer disease by endoscopy at [facility] 1 month ago. Plan is for proton pump inhibitor. An EGD will be planned in the morning. 2. Malnutrition. This is attributed to previous gastric bypass surgery. I am somewhat concerned that gastrostomy tube balloon could be causing partial bowel obstruction. This will be evaluated at time of endoscopy as well. 3. History of gastric bypass. This could contribute to iron malabsorption. In subsequent anemia. Iron replacement encourage. 4. Peptic ulcer disease. Recent endoscopy at [place] confirmed ulcer disease. Likely related to previous nonsteroidal anti-inflammatory agent use. Will continue PPI if at all possible 5. Leukocytosis. Infectious etiology not clearly defined is suspected. Plan is for proton pump inhibitor. Transfuse to stable hemoglobin. EGD I have discussed the case with hospitalist Dr. Wong ernst who agrees. To assess upper GI anatomy in the morning. Also to assess status of ulcer disease. GI Consult Note Consult date/time: 11/10/19 13:01 HPI: Jocelyn Damon is a 44 year old female [facility] Past Medical History Medical History On total parenteral nutrition (TPN) Peptic ulcer disease Perforated peptic ulcer Status post exploratory laparotomy in ~ 2018 Port-A-Cath in place Severe protein-calorie malnutrition Surgical History Surgical History Gastrostomy tube in place History of gastric bypass Approximately 2009. Status post exploratory laparotomy For reported perforated gastric ulcer in about 2018. Status post tonsillectomy and adenoidectomy Family Histo
[2019-11-10] MEDS: DEXTROSE 5%/0.9% SOD CHL 1,000 ML 75 ML IV CONT (15:35)
[2019-11-10 17:58] LABS: Hematocrit 21.7 % (37.0-47.0); Hemoglobin 7.4 g/dL (12.0-15.0)
[2019-11-11] VITALS (12 sets, daily range): BP systolic 83–132; BP diastolic 47–76; PULSE 81–116; RESP 17–27; TEMP 37–38.3; O2SAT 94–100
[2019-11-11 05:18] LABS: Basophils Percent Auto 0.2 % (0.2-1.2); Eosinophils Percent Auto 0.1 % (0-4.4); Hematocrit 22.2 % (37.0-47.0); Hemoglobin 7.3 g/dL (12.0-15.0); Immature Granulocyte Absolute 0.14 K/mm3 (0.00-0.031); Immature Granulocyte Percent A 0.8 % (0-0.5); Lymphocytes Absolute Auto 1.06 K/mm3 (0.9-3.2); Lymphocytes Percent Auto 6.3 % (18.3-44.2); Mean Corpuscular HGB Conc 32.9 g/dl (32-36); Mean Corpuscular Hemoglobin 30.8 pg (26-34); Mean Corpuscular Volume 93.7 fl (80-100); Mean Platelet Volume 10.3 fl (7.4-10.4); Monocytes Absolute Auto 0.6 K/mm3 (0.1-0.6); Monocytes Percent Auto 3.4 % (2.6-8.5); Neutrophils Absolute Auto 15.1 K/mm3 (1.3-6.7); Neutrophils Percent Auto 89.2 % (45.5-73.1); Nucleated Red Blood Cells Absolute Auto 0.1 K/mm3 (0.0-0.012); Nucleated Red Blood Cells Perc 0.3 % (0.0-0.2); Platelet Count Result 382 k/mm3 (150-375); Red Blood Count 2.37 M/mm3 (4.2-5.4); Red Cell Distribution Width 18.5 % (11.5-14.5); White Blood Count 16.9 K/mm3 (4.5-10.0)
[2019-11-11] MEDS: SODIUM CHLORIDE 0.9% IV 500 ML 999 ML (05:26)
[2019-11-11 05:54] LABS: Lactic Acid 0.7 mmol/L (0.7-2.1)
[2019-11-11 05:55] LABS: Alanine Aminotransferase 32 U/L (4-35); Albumin Level 1.9 g/dL (3.5-5.1); Alkaline Phosphatase 158 U/L (38-126); Aspartate Amino Transferase 38 U/L (14-36); Bilirubin,Total 0.2 mg/dL (0.2-1.3); Blood Urea Nitrogen 8 mg/dL (7-17); Calcium 7.2 mg/dL (8.4-10.2); Carbon Dioxide 27 mmol/L (22-30); Chloride 103 mmol/L (98-107); Estimated CRCL calculation 89 ml/min; Estimated Glomerular Filt Rate > 60; Glucose 182 mg/dL (65-105); Magnesium 1.9 mg/dL (1.6-2.3); Phosphorus 3.7 mg/dL (2.5-4.5); Potassium 2.9 mmol/L (3.4-5.0); Sodium 133 mmol/L (137-145)
[2019-11-11] MEDS: NOREPINEPHRINE 8 MG/D5W 250 ML 8 MG/250 ML BAG 9.4 MG IV CONT (06:10)
[2019-11-11] MEDS: DEXTROSE 5%/0.9% SOD CHL 1,000 ML 75 ML IV CONT (06:11)
[2019-11-11] MEDS: PANTOPRAZOLE SODIUM IV 40 MG VIAL IV PUSH ×2 (08:13→22:20)
[2019-11-11] MEDS: SODIUM CHLORIDE 0.9% IV 500 ML IV CONT (08:13)
--- NOTE | 2019-11-11 09:12 | WPDINTPN ---
Progress Note: A&P Assessment and Plan (1) Septic shock: Code(s): A41.9 - Sepsis, unspecified organism; R65.21 - Severe sepsis with septic shock Status: Acute Assessment and Plan: septic shock likely related to sepsis, hemorrhagic. Elevated lactic acid most likely related to decreased end organ perfusion due to severe anemia - patient with possible aspiration pneumonitis /pneumonia on CT chest - continue Zosyn and vancomycin, - lactic acid has normalized - cultures have been obtained and pending - patient was started on Levophed, will target systolic blood pressure > 90 mmHg - repeat chest x-ray today (2) Severe anemia: Code(s): D64.9 - Anemia, unspecified Status: Acute Assessment and Plan: patient with severe anemia. she stated that she had some hematemesis a month back but denies any hematemesis, melena or blood loss recently. - Patient be transfuse 2 units of packed RBCs, for hemoglobin of 4.2 - has been stable post transfusion - patient has been started on Protonix IV q.12 hours - appreciate GI evaluation recommendation, EGD planned for today, 11/11/2019 (3) Hypokalemia: Code(s): E87.6 - Hypokalemia Status: Acute Assessment and Plan: potassium replaced (4) Severe protein-calorie malnutrition: Code(s): E43 - Unspecified severe protein-calorie malnutrition Status: Acute Assessment and Plan: patient with severe protein calorie malnutrition likely due to gastric bypass surgeries, bowel perforation surgeries. Patient has a Port-A-Cath and was on TPN. Patient also has a J-tube through which she gets her medications - will restart TPN after endoscopy - according to the bedside RN, patient's family called informed the bedside RN that patient is supposed to be NPO except ice chips (5) DVT prophylaxis: Code(s): Z29.9 - Encounter for prophylactic measures, unspecified Status: Acute Assessment and Plan: SCDs (6) Fall: Code(s): W19.XXXA - Unspecified fall, initial encounter Status: Acute Assessment and Plan: patient had a fall/syncopal episode, likely related to hypotension, severe anemia, shock - CT scan of the facial bones and neck did not show any acute fractures Additional Plan discussed with patient in detail and updated her with her condition and plan of care. I answered all questions. Code status: Full code Critical care time spent: 33 minutes minutes Due to a high probability of clinically significant, life threatening deterioration, the patient required my highest level of preparedness to intervene emergently and I personally spent this critical care time directly and personally managing the patient. This critical care time included obtaining a history; examining the patient; pulse oximetry; ordering and review of studies; arranging urgent treatment with development of a management plan; evaluation of patient's response to treatment; frequent reassessment; and discussions with other providers. It was exclusive of separately billable procedures and treating other patients and teaching time. Please see Assessment and Plan section and the rest of the note for further information on patient assessment and treatment Subjective Date/time seen: REASON FOR CONSULT: severe anemia, pneumonia, severe sepsis /septic shock 11/11/2019: Patient seen and examined this morning. hemoglobin has been stable status post 2 units of packed RBCs yesterday. Patient has been hypotensive despite receiving significant IV fluids and packed RBCs. Patient was started on Levophed this morning, currently on 7 mcg/hr. patient denies any chest pain, shortness of breath complains of epigastric pain. Output has been adequate, low potassium levels this morning. WBC count trending down. Patient denies any nausea vomiting at this time Review of Systems Review of Systems: All systems reviewed & are unremarkable
--- NOTE | 2019-11-11 09:41 | WPDANESEPPF ---
Anes - Initial Pre Proc Eval Procedure: Operation Date: 11/11/19 10:30 Proposed Procedures p Esophagogastroduodenoscopy - Derick Bello MD Date/Time: 11/11/19 09:41 Surgeon: Garrett Lozano MD Pre Op Diagnosis: SEVERE SEPSIS,PNEUMONIA,ANEMIA Patient Data Age: 44 Gender: F Height: 1.68 m Weight: 47.2 kg Last Vital Signs Temp 37.0 C 11/11/19 08:00 Pulse 84 11/11/19 08:00 Resp 17 11/11/19 08:00 BP 106/60 11/11/19 08:00 Pulse Ox 98 11/11/19 08:00 Allergies Allergy/AdvReac Type Severity Reaction Status Date / Time No Known Allergies Allergy Verified 11/15/19 16:23 Home Medications Medication Instructions Recorded Confirmed Type artificial saliva (cmce-lytes) 3 spray PO TID PRN 10/30/19 11/10/19 History ergocalciferol (vitamin D2) 6.3 ml FEEDING TUBE WEEKLY 10/30/19 11/10/19 History gabapentin 600 mg FEEDING TUBE TID 10/30/19 11/10/19 History hydroxyzine HCl 10 mg FEEDING TUBE QID PRN 10/30/19 11/10/19 History iron sucrose 500 mg IV WEEKLY 10/30/19 11/10/19 History lidocaine 1 patch TOPICAL DAILY 10/30/19 11/10/19 History loperamide 4 mg FEEDING TUBE QID PRN 10/30/19 11/15/19 History drqtzmfo-odi-qlfqxbb gluconate 15 ml FEEDING TUBE BID 10/30/19 11/10/19 History [Centrum] sertraline 150 mg FEEDING TUBE HS 10/30/19 11/10/19 History sucralfate 1 g FEEDING TUBE QID 10/30/19 11/10/19 History Infuvite Adult 15 ml IV DAILY 11/10/19 11/10/19 History acetaminophen 650 mg PO Q6H PRN 11/10/19 11/15/19 History hydrocodone-acetaminophen [[place]] 1 tablet PO Q8H PRN #20 tablet 11/17/19 Rx Laboratory Tests 11/10/19 11/10/19 11/10/19 02:17 11:52 11:52 WBC RBC Hgb 7.4 g/dL L D g/dL (12.0-15.0) Hct 22.5 % L % (37.0-47.0) MCV MCH MCHC RDW Plt Count MPV Immature Gran % (Auto) Neut % (Auto) Lymph % (Auto) Mccormick % (Auto) Eos % (Auto) Baso % (Auto) Lymph # (Auto) Mccormick # (Auto) Eos # (Auto) Baso # (Auto) Abs Immat Gran (auto) Absolute Neuts (auto) Absolute Nucleated RBC Nucleated RBC % Sodium Potassium Chloride Carbon Dioxide BUN Creatinine Estim Creat Clear Calc Estimated GFR Glucose Lactic Acid 0.5 mmol/L L mmol/L (0.7-2.1) Calcium Phosphorus Magnesium Total Bilirubin AST ALT Alkaline Phosphatase Total Protein Albumin Stl Occult Blood (IFOB) Crossmatch See Detail 11/10/19 11/10/19 11/11/19 11:59 17:44 05:12 WBC 16.9 K/mm3 H K/mm3 (4.5-10.0) RBC 2.37 M/mm3 L M/mm3 (4.2-5.4) Hgb 7.4 g/dL L g/dL 7.3 g/dL L g/dL (12.0-15.0) (12.0-15.0) Hct 21.7 % L % 22.2 % L % (37.0-47.0) (37.0-47.0) MCV 93.7 fl D fl (80-100) MCH 30.8 pg pg (26-34) MCHC 32.9 g/dl g/dl (32-36) RDW 18.5 % H % (11.5-14.5) Plt Count 382 k/mm3 H k/mm3 (150-375) MPV 10.3 fl fl (7.4-10.4) Immature Gran % (Auto) 0.8 % H % (0-0.5) Neut % (Auto) 89.2 % H % (45.5-73.1) Lymph % (Auto) 6.3 % L % (18.3-44.2) Mccormick % (Auto) 3.4 % % (2.6-8.5) Eos % (Auto) 0.1 % % (0-4.4) Baso % (Auto) 0.2 % % (0.2-1.2) Lymph # (Auto) 1.06 K/mm3 K/mm3 (0.9-3.2) Mccormick # (Auto) 0.6 K/mm3 K/mm3 (0.1-0.6) Eos # (Auto) 0.0 K/mm3 K/mm3 (0-0.3) Baso # (Auto) 0.0 K/mm3 K/mm3 (0.0-0.1) Abs Immat Gran (auto) 0.14 K/mm3 H K/mm3 (0.00-0.031) Absolute Neuts (auto) 15.1 K/mm3 H
--- NOTE | 2019-11-11 10:45 | PCDIET ---
Nutrition Follow-Up Complete: Underweight R/T inability to consume adequate nutrition as evidence by BMI of 16.8 Total intake will meet estimated kcal needs of 1650 and protein needs of 47-57g daily to promote mild weight gain. Goal:Goal not met. Will progress towards goal later today. Pt current nutrition is NPO Nutrition recommendation: Initiate TPN at 1/2 strength today after EGD Last recorded weight is 47.2 kg (no new wt, recommend daily weights) Bowel Motility: BM today Labs Reviewed:11/10 Hgb 7.3, Hct 22.2, Alb 1.9, Na 133, Protein 5.0, K 2.9, Glucose 182, AST 38 Meds Noted: Levo Additional Notes: Plans to start Clinimix 01/20+ 250ml of 20% lipids after EGD today at 30ml/hr, provided 50% of kcal needs 1011kdcals, 36g protein, and 970ml of fluid. Plans to progress to goal of 60ml/hr over two days due to malnourished state. Will monitor electrolytes for tolerance. Pt has not eaten by mouth due to suspected aspiration. MD states care home staff says the pt steals food off of trays but family reports she should have nothing by mouth. GI MD unsure at this point why jtube not being used for feedings, but used for meds. If medically appropriate, I recommend feeding an elemental formula in J tube, trialing Vital 1.2 with trickle feeds of 10ml/hr and if tolerated, an eventual goal of 65ml/hr would be appropriate. No plans for a swallow study at this point per MD. We will continue to monitor daily. Nutrition strategy, tolerance, weight, labs daily
--- NOTE | 2019-11-11 10:48 | SUR.OPER ---
REPORT GIVEN TO [employer]AT F[employer]ER. CARE TURNED OVER TO GOAT FARMER.
[2019-11-11] MEDS: LACTATED RINGERS 1,000 ML 150 ML IV CONT (10:50)
--- NOTE | 2019-11-11 10:54 | P.OP_ITS ---
Procedure Note - Detailed Date of procedure: 11/11/19 Pre-op diagnosis: SEVERE SEPSIS,PNEUMONIA,ANEMIA Surgeon: Derick Bello MD Procedure EGD. Preop diagnosis 1. Blood loss anemia. 2. Malnutrition. 3. History of peptic ulcer. 4. History of gastric bypass. 5. History of perforation. Postop diagnosis 1. Previous gastric bypass. 2. Gastric ulceration. Informed consent for the EGD is obtained from patient. The risks benefits alternatives indications are discussed thoroughly with the patient. The risks include but are not limited to adverse reaction to medications including allergies. The risk of bleeding possible need for transfusion. The risk of perforation possible need for surgery. The risks for missed pathology. Patient voiced clear understanding and agreed to proceed. Instrument is the Intralignn video endoscope. Description of procedure. Fujinon video endoscope is passed to the esophagus which appears normal. The squamocolumnar junction is located 40cm from the incisors. This appears normal. The stomach is since entirety reveals ulceration throughout the large portion of the gastric remnant. The stomach itself is very small from previous gastric bypass. The small bowel appears normal. Both a friend and E for it loops are explored in appear unremarkable. No evidence for feeding tube in the range of this endoscopy. Impression 1. Gastric ulceration. Located in the small gastric remnant after gastric bypass. 2. Previous gastric bypass. No active bleeding is evident at this time. No biopsies are taken at this time because of recent significant blood loss. Plan is to continue high-dose proton pump inhibitor. suggest discontinuing Carafate at this time. Avoiding nonsteroidal anti-inflammatory agents is encouraged. Consider follow- up EGD in several months. To document healing of this ulcer. Plan to obtain old records to see why patient cannot be allowed oral intake. See no contraindication to oral intake at this time. However diet if started should be liquid and advanced to bland very slowly. This may be limited by previous small bowel feeding tube. Also plan for Gastrografin study to be performed through the small bowel feeding tube. To document position and function. We will continue to follow with you.
[2019-11-11] MEDS: LIDOCAINE HCL 1% PF INJ 5 ML VIAL INFILTRATE (13:25)
[2019-11-11 14:07] LABS: Basophils Percent Auto 0.2 % (0.2-1.2); Eosinophils Percent Auto 0.1 % (0-4.4); Hematocrit 23.7 % (37.0-47.0); Immature Granulocyte Absolute 0.07 K/mm3 (0.00-0.031); Immature Granulocyte Percent A 0.4 % (0-0.5); Lymphocytes Absolute Auto 1.45 K/mm3 (0.9-3.2); Lymphocytes Percent Auto 8.8 % (18.3-44.2); Mean Corpuscular HGB Conc 33.8 g/dl (32-36); Mean Corpuscular Hemoglobin 31.4 pg (26-34); Mean Corpuscular Volume 92.9 fl (80-100); Mean Platelet Volume 10.5 fl (7.4-10.4); Monocytes Absolute Auto 0.7 K/mm3 (0.1-0.6); Monocytes Percent Auto 4.1 % (2.6-8.5); Neutrophils Absolute Auto 14.3 K/mm3 (1.3-6.7); Neutrophils Percent Auto 86.4 % (45.5-73.1); Nucleated Red Blood Cells Perc 0.2 % (0.0-0.2); Platelet Count Result 442 k/mm3 (150-375); Red Blood Count 2.55 M/mm3 (4.2-5.4); Red Cell Distribution Width 18.2 % (11.5-14.5); White Blood Count 16.6 K/mm3 (4.5-10.0)
[2019-11-11 14:16] LABS: Partial Thromboplastin Time 40.2 SECONDS (22.3-36.8)
[2019-11-11 14:18] LABS: Alanine Aminotransferase 33 U/L (4-35); Albumin Level 2.2 g/dL (3.5-5.1); Alkaline Phosphatase 194 U/L (38-126); Aspartate Amino Transferase 29 U/L (14-36); Bilirubin,Total 0.2 mg/dL (0.2-1.3); Blood Urea Nitrogen 8 mg/dL (7-17); Calcium 7.3 mg/dL (8.4-10.2); Carbon Dioxide 24 mmol/L (22-30); Chloride 103 mmol/L (98-107); Estimated CRCL calculation 89 ml/min; Estimated Glomerular Filt Rate > 60; Glucose 109 mg/dL (65-105); Magnesium 1.8 mg/dL (1.6-2.3); Potassium 3.6 mmol/L (3.4-5.0); Sodium 136 mmol/L (137-145)
[2019-11-11] MEDS: FAT EMULSIONS IV 20% 250 ML 20.8 ML IVPB (15:00)
[2019-11-11 15:21] LABS: Transferrin < 80 mg/dL (206-381)
[2019-11-11 17:56] LABS: Vancomycin Trough 16.6 ug/mL (10.0-20.0)
[2019-11-11] MEDS: MICAFUNGIN SODIUM 100 MG in SODIUM CHLORIDE 0.9% IV 100 ML IVPB (22:28)
[2019-11-12] VITALS (8 sets, daily range): BP systolic 98–121; BP diastolic 67–91; PULSE 73–94; RESP 11–30; TEMP 36.6–37.3; O2SAT 92–100
[2019-11-12 05:15] LABS: Basophils Percent Auto 0.1 % (0.2-1.2); Eosinophils Absolute Auto 0.1 K/mm3 (0-0.3); Eosinophils Percent Auto 0.6 % (0-4.4); Hematocrit 21.8 % (37.0-47.0); Hemoglobin 7.2 g/dL (12.0-15.0); Immature Granulocyte Absolute 0.04 K/mm3 (0.00-0.031); Immature Granulocyte Percent A 0.4 % (0-0.5); Lymphocytes Absolute Auto 2.08 K/mm3 (0.9-3.2); Lymphocytes Percent Auto 20.6 % (18.3-44.2); Mean Corpuscular Hemoglobin 30.8 pg (26-34); Mean Corpuscular Volume 93.2 fl (80-100); Mean Platelet Volume 10.8 fl (7.4-10.4); Monocytes Absolute Auto 0.8 K/mm3 (0.1-0.6); Monocytes Percent Auto 7.9 % (2.6-8.5); Neutrophils Absolute Auto 7.1 K/mm3 (1.3-6.7); Neutrophils Percent Auto 70.4 % (45.5-73.1); Nucleated Red Blood Cells Absolute Auto 0.1 K/mm3 (0.0-0.012); Nucleated Red Blood Cells Perc 0.8 % (0.0-0.2); Platelet Count Result 391 k/mm3 (150-375); Red Blood Count 2.34 M/mm3 (4.2-5.4); Red Cell Distribution Width 18.1 % (11.5-14.5); White Blood Count 10.1 K/mm3 (4.5-10.0)
[2019-11-12 05:36] LABS: Triglycerides 126 mg/dL (<150)
[2019-11-12 05:47] LABS: Blood Urea Nitrogen 7 mg/dL (7-17); Calcium 7.5 mg/dL (8.4-10.2); Carbon Dioxide 24 mmol/L (22-30); Chloride 104 mmol/L (98-107); Estimated CRCL calculation 89 ml/min; Estimated Glomerular Filt Rate > 60; Glucose 95 mg/dL (65-105); Magnesium 1.6 mg/dL (1.6-2.3); Phosphorus 3.2 mg/dL (2.5-4.5); Potassium 3.1 mmol/L (3.4-5.0); Sodium 133 mmol/L (137-145)
[2019-11-12 06:28] LABS: Lactic Acid < 0.5 mmol/L (0.7-2.1)
[2019-11-12] MEDS: PANTOPRAZOLE SODIUM IV 40 MG VIAL IV PUSH ×2 (08:26→22:07)
--- NOTE | 2019-11-12 08:39 | WPDANESPN ---
Anes - Prog Note Post-Op Date/Time: 11/12/19 08:39 Cardiovascular status: normal Respiratory status: normal Airway patency: baseline Mental status: baseline Post-Op hydration status: normal Vital Signs: Last Vital Signs Temp 37.0 C 11/12/19 08:00 Pulse 78 11/12/19 08:00 Resp 11 L 11/12/19 08:00 BP 101/80 11/12/19 08:00 Pulse Ox 95 11/12/19 08:00 I/O: Intake & Output 11/11/19 11/12/19 11/12/19 23:59 07:59 15:59 Intake Total 776 450 100 Output Total 650 850 Balance 126 -400 100 Laboratory Tests 11/12/19 04:54 11/12/19 04:54 11/11/19 11/11/19 11/11/19 13:58 13:58 13:58 WBC 16.6 H RBC 2.55 L Hgb 8.0 L Hct 23.7 L MCV 92.9 MCH 31.4 MCHC 33.8 RDW 18.2 H Plt Count 442 H MPV 10.5 H Immature Gran % (Auto) 0.4 Neut % (Auto) 86.4 H Lymph % (Auto) 8.8 L Cochran % (Auto) 4.1 Eos % (Auto) 0.1 Baso % (Auto) 0.2 Lymph # (Auto) 1.45 Cochran # (Auto) 0.7 H Eos # (Auto) 0.0 Baso # (Auto) 0.0 Abs Immat Gran (auto) 0.07 H Absolute Neuts (auto) 14.3 H Absolute Nucleated RBC 0.0 Nucleated RBC % 0.2 APTT 40.2 H Sodium 136 L Potassium 3.6 Chloride 103 Carbon Dioxide 24 BUN 8 Creatinine 0.50 L Estim Creat Clear Calc 89 Estimated GFR > 60 Glucose 109 H Lactic Acid Calcium 7.3 L Phosphorus Magnesium 1.8 Transferrin < 80 L Total Bilirubin 0.2 AST 29 ALT 33 Alkaline Phosphatase 194 H Total Protein 5.0 L Albumin 2.2 L Triglycerides Vancomycin Trough 11/11/19 11/12/19 11/12/19 17:20 04:54 04:54 WBC 10.1 H RBC 2.34 L Hgb 7.2 L Hct 21.8 L MCV 93.2 MCH 30.8 MCHC 33.0 RDW 18.1 H Plt Count 391 H MPV 10.8 H Immature Gran % (Auto) 0.4 Neut % (Auto) 70.4 Lymph % (Auto) 20.6 [place] % (Auto) 7.9 Eos % (Auto) 0.6 Baso % (Auto) 0.1 L Lymph # (Auto) 2.08 [place]ran # (Auto) 0.8 H Eos # (Auto) 0.1 Baso # (Auto) 0.0 Abs Immat Gran (auto) 0.04 H Absolute Neuts (auto) 7.1 H Absolute Nucleated RBC 0.1 H Nucleated RBC % 0.8 H APTT Sodium 133 L Potassium 3.1 L Chloride 104 Carbon Dioxide 24 BUN 7 Creatinine 0.50 L Estim Creat Clear Calc 89 Estimated GFR > 60 Glucose 95 Lactic Acid Calcium 7.5 L Phosphorus 3.2 Magnesium 1.6 Transferrin Total Bilirubin AST ALT Alkaline Phosphatase Total Protein Albumin Triglycerides Vancomycin Trough 16.6 11/12/19 11/12/19 04:54 04:54 WBC RBC Hgb Hct MCV MCH MCHC RDW Plt Count MPV Immature Gran % (Auto) Neut % (Auto) Lymph % (Auto) [place] % (Auto) Eos % (Auto) Baso % (Auto) Lymph # (Auto) [place] # (Auto) Eos # (Auto) Baso # (Auto) Abs Immat Gran (auto) Absolute Neuts (auto) Absolute Nucleated RBC Nucleated RBC % APTT Sodium Potassium Chloride Carbon Dioxide BUN Creatinine Estim Creat Clear Calc Estimated GFR Glucose Lactic Acid < 0.5 L Calcium Phosphorus Magnesium Transferrin Total Bilirubin AST ALT Alkaline Phosphatase Total Protein Albumin Triglycerides 126 Vancomycin Trough Microbiology 11/10/19 03:53 Blood Blood Culture - Preliminary Budding Yeast 11/10/19 03:53 Blood Blood Culture - Preliminary Yeast. 11/10/19 17:03 Urine Li Port Urine Culture - Final Post-procedural complaints: none Patient Feedback: Patient satisfied with anesthetic care.
--- NOTE | 2019-11-12 09:19 | WPDINTPN ---
Progress Note: A&P Assessment and Plan (1) Septic shock: Code(s): A41.9 - Sepsis, unspecified organism; R65.21 - Severe sepsis with septic shock Status: Acute Assessment and Plan: septic shock likely related to sepsis, hemorrhagic. Elevated lactic acid most likely related to decreased end organ perfusion due to severe anemia - patient with possible aspiration pneumonitis /pneumonia on CT chest - blood cultures growing yeast, patient started on micafungin on 11/11/2019, infectious Disease has been consulted - continue Zosyn and vancomycin, - lactic acid has normalized - patient is off Levophed (2) Severe anemia: Code(s): D64.9 - Anemia, unspecified Status: Acute Assessment and Plan: patient with severe anemia. she stated that she had some hematemesis a month back but denies any hematemesis, melena or blood loss recently. - Patient be transfuse 2 units of packed RBCs on 11/10/2019, for hemoglobin of 4.2 - hemoglobin has been stable - patient has been started on Protonix IV q.12 hours - appreciate GI evaluation recommendation, - EGD on 11/11/2019 showed gastric ulceration throughout the stomach, previous gastric bypass, (3) Hypokalemia: Code(s): E87.6 - Hypokalemia Status: Acute Assessment and Plan: potassium replaced (4) Severe protein-calorie malnutrition: Code(s): E43 - Unspecified severe protein-calorie malnutrition Status: Acute Assessment and Plan: patient with severe protein calorie malnutrition likely due to gastric bypass surgeries, bowel perforation surgeries. Patient has a Port-A-Cath and was on TPN. Patient also has a J-tube through which she gets her medications - patient started on TPN - according to the bedside RN, patient's family called informed the bedside RN that patient is supposed to be NPO except ice chips (5) DVT prophylaxis: Code(s): Z29.9 - Encounter for prophylactic measures, unspecified Status: Acute Assessment and Plan: SCDs (6) Fall: Code(s): W19.XXXA - Unspecified fall, initial encounter Status: Acute Assessment and Plan: patient had a fall/syncopal episode, likely related to hypotension, severe anemia, shock - CT scan of the facial bones and neck did not show any acute fractures Additional Plan discussed with patient in detail and updated her with her condition and plan of care. I answered all questions. Code status: Full code Critical care time spent: 31 minutes minutes Due to a high probability of clinically significant, life threatening deterioration, the patient required my highest level of preparedness to intervene emergently and I personally spent this critical care time directly and personally managing the patient. This critical care time included obtaining a history; examining the patient; pulse oximetry; ordering and review of studies; arranging urgent treatment with development of a management plan; evaluation of patient's response to treatment; frequent reassessment; and discussions with other providers. It was exclusive of separately billable procedures and treating other patients and teaching time. Please see Assessment and Plan section and the rest of the note for further information on patient assessment and treatment Subjective Date/time seen: REASON FOR CONSULT: severe anemia, pneumonia, severe sepsis /septic shock 11/12/2019: Patient seen and examined this morning. Hemoglobin is stable. Patient status post EGD 11/11/2019 which showed prick ulceration, previous gastric bypass. Patient is off Levophed, hemodynamically stable. Blood cultures growing yeast, patient started on micafungin on 11/11/2019. Patient denies any chest pain, shortness of breath, abdominal pain, nausea, vomiting, diarrhea. Low potassium levels this morning. White count trending down. urine output has been adequate and patient has been hemodynamically stable
--- NOTE | 2019-11-12 10:53 | WPDGIPROGNO ---
Progress Note: A&P Additional Plan Patient alert and comfortable this morning. She wants to eat. Denies significant abdominal pain. No obvious bleeding reported. Physical exam reveals her to be alert. Poor dentition noted. Lungs are clear. Abdomen is soft and nontender. Multiple scars Laboratory work reveals WBC 10.1, hemoglobin 7.2, hematocrit 21.8, MCV 93.2. Stable albumin 2.2. Review of old records from [facility] reveals chronic ulceration to the gastric remnant. She has had multiple recent surgeries. Greta gastric abscesses status post drainage. Previous pigtail stents in this area recently removed. 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 Ulceration in stomach has been present for at least 2-3 years. Does not appear to be healing with medical therapy. Impression 1. Previous gastric bypass. 2. Gastric ulceration. 3. History of perigastric abscesses. 4. Jejunostomy tube. 5. 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 Plan is to continue TPN. Continue proton pump inhibitor intravenously. When patient clinically stable with advised transfer back to [facility] for continue medical management. My understanding is that when she is stronger surgery is anticipated. Subjective Date/time seen: 11/12/19 10:53 Objective Data Vital Signs Vital Signs: Vital Signs - 24 hr 11/11/19 12:00 11/11/19 14:00 11/11/19 16:00 Temperature 37.2 C 37.2 C 37.2 C Pulse Rate 87 95 96 Respiratory Rate 22 H 20 22 H Blood Pressure 115/71 120/72 109/75 Pulse Oximetry 98 98 97 11/11/19 18:00 11/11/19 20:00 11/11/19 22:00 Temperature 37.9 C H 37.7 C H Pulse Rate 99 99 94 Respiratory Rate 27 H 25 H 20 Blood Pressure 116/75 108/75 100/66 Pulse Oximetry 94 97 100 11/12/19 00:00 11/12/19 04:00 11/12/19 06:00 Temperature 37.3 C 36.8 C 36.8 C Pulse Rate 94 86 82 Respiratory Rate 24 H 22 H 20 Blood Pressure 116/79 98/67 L 103/77 Pulse Oximetry 95 96 92 11/12/19 08:00 Temperature 37.0 C Pulse Rate 78 Respiratory Rate 11 L Blood Pressure 101/80 Pulse Oximetry 95 Intake/Output Intake/Output: Intake & Output 0311/10/19 11/11/19 11/12/19 23:59 23:59 23:59 23:59 Intake Total 4300 3561 800 Output Total 510 2042 850 Balance 3794 2161 -50 Meds/Results Medications: Active Medications Generic Name Dose Route Start Last Admin Trade Name Freq PRN Reason Stop Dose Admin Fentanyl Citrate 12.5 mcg 11/11/19 12:53 11/12/19 09:03 Sublimaze IV PUSH 12.5 mcg Q4H PRN Administration Pain Rated 7-10 Heparin Sodium (Beef Lung) 50 units 11/10/19 09:00 11/12/19 08:24 Heparin Flush 50 Units/5 Ml IV PUSH Not Given QAM EVER Heparin Sodium (Beef Lung) 50 units 11/10/19 07:52 Heparin Flush 50 Units/5 Ml IV PUSH PRN PRN after intermittent infusion Heparin Sodium (Beef Lung) 50 units 11/10/19 07:52 Heparin Flush 50 Units/5 Ml IV PUSH PRN PRN after blood draws Heparin Sodium (Porcine) 500 units 11/10/19 07:52 Heparin Sod Flush 100 Units/Ml IV PUSH PRN PRN see comments below Piperacillin Sod/Tazobactam Sod 4.5 gm in 100 mls @ 200 mls/hr 11/10/19 11:00 11/12/19 08:23 Zosyn 4.5 Gm/D5w 100 Ml IVPB Infused Q6H EVER Infusion Vancomycin HCl 1,000 mg in 250 mls @ 250 mls/hr 11/10/19 06:00 11/12/19 08:30 Vancomycin 1,000 Mg/D5w 250 Ml IVPB Infused Q12H EVER Infusion Dextrose 1,000 mls @ 50 mls/hr 11/11/19 10:05 Dextrose 10% IV CONT .Q20H PRN if PN is interrupted Multivitamins 5 ml/ Amino 2,005 mls @ 30 mls/hr 11/11/19 12:00 11/11/19 17:33 Acids/Electrolytes/Dextrose IV CONT 30 mls/hr .Q24H EVER Infusion Protocol Fat Emulsion Intravenous 250 mls @ 20.833 mls/hr 11/11/19 12:00 11/12/19 04:00 Lipids 20% IVPB Infused Q24H EVER Infusion Micafungin Sodium 100 mg/ 100 mls @ 100 mls/hr 11/11/19 21:00 11/11/19 23:40 Sodium Chloride IVPB Infused Q24H EVER Infusion Potassium Chloride 100 mls @ 25 mls/hr 03
--- NOTE | 2019-11-12 11:09 | PCDIET ---
Nutrition Follow-Up Complete: Nutrition Diagnosis: Underweight related to inability to consume adequate nutrition as evidenced by BMI of 16.8. Nutrition Goal: Total intake will meet estimated nutritional needs. Goal in progress. Patient receiving Clinimix 5/15 E at 30mL/hr with 250mL 20% lipids daily. Recommended increase in Clinimix rate toward goal of 60mL/hr. MD plans to hold TPN at same rate at this time. Last recorded weight is 47.2 kg. Recommend obtaining daily weights. Bowel Motility: BM x 3 documented this date. Labs Reviewed: K (3.1), Na (133), Ca (7.5) Meds Noted: Protonix, Piperacillin, Vancomycin, IV KCl Additional Notes: EGD showed no active bleeding. 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 Plan for transfer to outside hospital when bed available. In mean time, will continue to recommend increasing TPN rate to meet 100% of estimated needs. No documented skin breakdown. Nutrition Monitoring and Evaluation: Follow up every Friday/Friday. Follow daily in ICU rounds.
[2019-11-12] MEDS: FAT EMULSIONS IV 20% 250 ML 20.8 ML IVPB (11:51)
--- NOTE | 2019-11-12 17:03 | WPDINFPN2 ---
Progress Note: A&P Assessment and Plan (1) Septicemia due to fungus: Code(s): A41.89 - Other specified sepsis; B49 - Unspecified mycosis Status: Acute Assessment and Plan: 1. Fungal septicemia due to Port infection 2. Lung infiltrates due to fluid overload, no pneumonia 3. Chronic TPN (4 weeks during most recent bout) 4. Past gastric bypass REC Micafungin # 2 / 10-14 days. Elective removal of Port, by her surgeon at [facility] if transferred, otherwise here early next week. Redo Bcs. Hold antibacterials Subjective Date/time seen: 11/12/19 17:03 Objective Data Vital Signs Vital Signs: Vital Signs - 24 hr 11/11/19 18:00 11/11/19 20:00 11/11/19 22:00 Temperature 37.9 C H 37.7 C H Pulse Rate 99 99 94 Respiratory Rate 27 H 25 H 20 Blood Pressure 116/75 108/75 100/66 Pulse Oximetry 94 97 100 11/12/19 00:00 11/12/19 04:00 11/12/19 06:00 Temperature 37.3 C 36.8 C 36.8 C Pulse Rate 94 86 82 Respiratory Rate 24 H 22 H 20 Blood Pressure 116/79 98/67 L 103/77 Pulse Oximetry 95 96 92 11/12/19 08:00 11/12/19 10:00 11/12/19 12:00 Temperature 37.0 C 36.6 C Pulse Rate 78 85 80 Respiratory Rate 11 L 15 30 H Blood Pressure 101/80 100/76 108/78 Pulse Oximetry 95 95 97 11/12/19 16:00 Temperature 36.6 C Pulse Rate 73 Respiratory Rate 20 Blood Pressure 121/91 H Pulse Oximetry Intake/Output Intake/Output: Intake & Output 11/09/19 11/10/19 11/11/19 11/12/19 23:59 23:59 23:59 23:59 Intake Total 4304 3561 2930 Output Total 510 1400 850 Balance 3794 2161 2080 Meds/Results Medications: Active Medications Generic Name Dose Route Start Last Admin Trade Name Freq PRN Reason Stop Dose Admin Fentanyl Citrate 12.5 mcg 11/11/19 12:53 11/12/19 13:16 Sublimaze IV PUSH 12.5 mcg Q4H PRN Administration Pain Rated 7-10 Heparin Sodium (Beef Lung) 50 units 11/10/19 09:00 11/12/19 08:24 Heparin Flush 50 Units/5 Ml IV PUSH Not Given QAM EVER Heparin Sodium (Beef Lung) 50 units 11/10/19 07:52 Heparin Flush 50 Units/5 Ml IV PUSH PRN PRN after intermittent infusion Heparin Sodium (Beef Lung) 50 units 11/10/19 07:52 Heparin Flush 50 Units/5 Ml IV PUSH PRN PRN after blood draws Heparin Sodium (Porcine) 500 units 11/10/19 07:52 Heparin Sod Flush 100 Units/Ml IV PUSH PRN PRN see comments below Piperacillin Sod/Tazobactam Sod 4.5 gm in 100 mls @ 200 mls/hr 11/10/19 11:00 11/12/19 16:48 Zosyn 4.5 Gm/D5w 100 Ml IVPB 200 mls/hr Q6H EVER Administration Vancomycin HCl 1,000 mg in 250 mls @ 250 mls/hr 11/10/19 06:00 11/12/19 08:30 Vancomycin 1,000 Mg/D5w 250 Ml IVPB Infused Q12H EVER Infusion Dextrose 1,000 mls @ 50 mls/hr 11/11/19 10:05 Dextrose 10% IV CONT .Q20H PRN if PN is interrupted Multivitamins 5 ml/ Amino 2,005 mls @ 30 mls/hr 11/11/19 12:00 11/12/19 11:51 Acids/Electrolytes/Dextrose IV CONT 30 mls/hr .Q24H EVER Administration Protocol Fat Emulsion Intravenous 250 mls @ 20.833 mls/hr 11/11/19 12:00 11/12/19 11:51 Lipids 20% IVPB 20.8 mls/hr Q24H EVER Administration Micafungin Sodium 100 mg/ 100 mls @ 100 mls/hr 11/11/19 21:00 11/11/19 23:40 Sodium Chloride IVPB Infused Q24H EVER Infusion Ondansetron HCl 4 mg 11/10/19 04:43 Zofran Inj IV PUSH Q4H PRN Nausea Pantoprazole Sodium 40 mg 11/10/19 09:00 11/12/19 08:26 Protonix Iv IV PUSH 40 mg Q12HR EVER Administration Radiology Results: ITS Impressions Head CT 11/09/19 23:58 IMPRESSION: No acute intracranial findings. Head/Cervical Spine/Facial Bones CT 11/10/19 00:02 IMPRESSION: 1. No acute facial or cervical fracture. 2. Some debris or blood within the nasal cavity. Chest/Abdomen/Pelvis CTA 11/10/19 08:23 IMPRESSION: 1. No aortic aneurysm or dissection. 2. Airspace disease in the left lower lobe with differential including pneumonia, aspiration pne
[2019-11-12] MEDS: ONDANSETRON INJ 4 MG/2 ML VIAL IV PUSH (21:56)
[2019-11-12] MEDS: MICAFUNGIN SODIUM 100 MG in SODIUM CHLORIDE 0.9% IV 100 ML IVPB (21:58)
--- NOTE | 2019-11-12 22:14 | CONS_ITS ---
DATE OF CONSULTATION: 11/12/2019 REASON FOR CONSULTATION: Positive blood cultures for yeast. HISTORY OF PRESENT ILLNESS: The patient is a 44-year-old female, who was a resident of [facility]. She has had a port in her right upper chest for 2 years for intermittent use of TPN. She denies any known complications in the past and also denies any previous bloodstream infection. For the last month, she has been on TPN due to inability to use her GI tract, in turn due to complications from past gastric bypass. She was brought to the hospital here on November 09, with a syncopal episode. She had some preceding dizziness in the several seconds beforehand. Here, she was found to have marked anemia, tachycardia, hypotension, leukocytosis along with temperature 38.8. She was started on piperacillin and vancomycin due to concern over pneumonia. Blood cultures were collected and were positive yesterday. She was started on micafungin as well. I was not notified of the consult until 2 hours ago. The patient denies any fever, chills, or sweats subjectively and her record indicates no antibiotics at her [facility] in the recent past. ALLERGIES: NONE KNOWN. PRESENT MEDICATIONS: No immunosuppressants. List reviewed. HABITS: No alcohol. No illicit drugs. She quit smoking about 2 months ago. PAST MEDICAL HISTORY: In addition to the above past peptic ulcer disease, gastric bypass 2009, G2, protein calorie malnutrition. FAMILY HISTORY: DC, diabetes, heart disease, renal disease. SOCIAL HISTORY: assisted resident most recently. No children. 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 REVIEW OF SYSTEMS: Abdominal pain. 14-point review otherwise negative. PHYSICAL EXAMINATION: GENERAL: This is a cachectic female in no acute distress. VITAL SIGNS: T-max shortly after arrival 38.9 and last 24 hours 37.9. 121/91, no pressors, 73, 20. SKIN: Warm and dry. No rashes. EENT: The pupils are dilated, left slightly more than the right. Conjunctivae are normal. There is no icterus. She has a single tooth in the upper jaw. Others are absent. Oropharynx, oral mucosa normal. NECK: Excessive hair in the anterior midline. No masses, thyromegaly, meningismus. LUNGS: Clear to auscultation and percussion. CHEST: Right upper chest wall Port-A-Cath is accessed. No skin breakdown, erythema, hematoma. She also has a PICC in place left upper extremity, which is new. CARDIAC: Regular rate and rhythm. No murmur, gallop, or rub. Pulses are 2+. ABDOMEN: G-tube is in place. The abdomen is distended. Surgical scar, no tenderness, no masses. EXTREMITIES: Muscle wasting. No clubbing, cyanosis, edema. She is cachectic. LABORATORY DATA: Blood cultures from admission, 2/2 sets budding yeast. A stool culture shows no shiga toxin. A urine specimen final no growth. Other labs notable for the white count originally now down to 10.1, hemoglobin 7.2, platelets are 391. Differential shows minimal left shift. She has mild hyponatremia, hypokalemia. Creatinine normal to low. Alkaline phosphatase 194, albumin 2.2. Urinalysis with minimal evidence of infection. RADIOLOGY: I personally reviewed her chest x-rays from the is normal and on the she has new evidence of pulmonary vascular congestion and bilateral diffuse lung infiltrates. CT of the chest, abdomen, and pelvis also performed showed airspace disease left lower lobe, ascites, splenectomy, splenic artery embolization, gastric bypass, left lower quadrant percutaneous J tube. ASSESSMENT: 1. Fever and leukocytosis due to fungal bloodstream infection. Other sources less likely including aspiration pneumonia, other forms of healthcare associated pneumonia, intraabdominal infection, PICC infection or central nervo
[2019-11-12 23:56] LABS: Glucose Point of Care 86 (65-105)
[2019-11-13 06:28] LABS: Blood Urea Nitrogen 5 mg/dL (7-17); Calcium 7.7 mg/dL (8.4-10.2); Carbon Dioxide 23 mmol/L (22-30); Chloride 104 mmol/L (98-107); Estimated CRCL calculation 96 ml/min; Estimated Glomerular Filt Rate > 60; Glucose 94 mg/dL (65-105); Magnesium 1.5 mg/dL (1.6-2.3); Phosphorus 3.7 mg/dL (2.5-4.5); Potassium 3.2 mmol/L (3.4-5.0); Sodium 132 mmol/L (137-145)
--- NOTE | 2019-11-13 07:47 | WPDGIPROGNO ---
Progress Note: A&P Additional Plan Patient alert and comfortable this morning. She reports minimal abdominal discomfort at present. Physical exam reveals abdomen to be soft. No localized pain evident. J-tube in left abdomen appears well healed. Impression 1. Previous gastric bypass. 2.. Intra-abdominal abscesses. These were recently drained at [facility]. 3. Gastric ulceration. This has not healed over the last several years. Apparently she has failed medical therapy despite being on proton pump inhibitor therapy surgeons at [facility] were ultimately planning surgical therapy. 4. 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 Based on workup done at [facility]. 5. Sepsis. Infectious disease service now following to assist with antibiotic selection. Plan is for continued supportive care. Patient would best be served by return to [facility] where she is well-known to continue her workup in therapy as previously outlined. We will continue proton pump therapy for her gastric ulceration. In the antrum. Subjective Date/time seen: 11/13/19 07:47 Objective Data Vital Signs Vital Signs: Vital Signs - 24 hr 11/12/19 08:00 11/12/19 10:00 11/12/19 12:00 Temperature 37.0 C 36.6 C Pulse Rate 78 85 80 Respiratory Rate 11 L 15 30 H Blood Pressure 101/80 100/76 108/78 Pulse Oximetry 95 95 97 11/12/19 16:00 11/12/19 23:49 Temperature 36.6 C Pulse Rate 73 78 Respiratory Rate 20 14 Blood Pressure 121/91 H 116/83 Pulse Oximetry Intake/Output Intake/Output: Intake & Output 11/10/19 11/11/19 11/12/19 11/13/19 23:59 23:59 23:59 23:59 Intake Total 4304 3561 3389 560 Output Total 510 1400 2800 1500 Balance 3794 2161 589 940 Meds/Results Medications: Active Medications Generic Name Dose Route Start Last Admin Trade Name Freq PRN Reason Stop Dose Admin Fentanyl Citrate 12.5 mcg 11/11/19 12:53 11/13/19 07:16 Sublimaze IV PUSH 12.5 mcg Q4H PRN Administration Pain Rated 7-10 Heparin Sodium (Beef Lung) 50 units 11/10/19 09:00 11/12/19 08:24 Heparin Flush 50 Units/5 Ml IV PUSH Not Given QAM EVER Heparin Sodium (Beef Lung) 50 units 11/10/19 07:52 Heparin Flush 50 Units/5 Ml IV PUSH PRN PRN after intermittent infusion Heparin Sodium (Beef Lung) 50 units 11/10/19 07:52 Heparin Flush 50 Units/5 Ml IV PUSH PRN PRN after blood draws Heparin Sodium (Porcine) 500 units 11/10/19 07:52 Heparin Sod Flush 100 Units/Ml IV PUSH PRN PRN see comments below Dextrose 1,000 mls @ 50 mls/hr 11/11/19 10:05 Dextrose 10% IV CONT .Q20H PRN if PN is interrupted Multivitamins 5 ml/ Amino 2,005 mls @ 30 mls/hr 11/11/19 12:00 11/13/19 06:12 Acids/Electrolytes/Dextrose IV CONT 30 mls/hr .Q24H EVER Infusion Protocol Fat Emulsion Intravenous 250 mls @ 20.833 mls/hr 11/11/19 12:00 11/13/19 00:32 Lipids 20% IVPB Infused Q24H EVER Infusion Micafungin Sodium 100 mg/ 100 mls @ 100 mls/hr 11/11/19 21:00 11/12/19 23:50 Sodium Chloride IVPB Infused Q24H EVER Infusion Ondansetron HCl 4 mg 11/10/19 04:43 11/12/19 21:56 Zofran Inj IV PUSH 4 mg Q4H PRN Administration Nausea Pantoprazole Sodium 40 mg 11/10/19 09:00 11/12/19 22:07 Protonix Iv IV PUSH 40 mg Q12HR EVER Administration Radiology Results: ITS Impressions Head CT 11/09/19 23:58 IMPRESSION: No acute intracranial findings. Head/Cervical Spine/Facial Bones CT 11/10/19 00:02 IMPRESSION: 1. No acute facial or cervical fracture. 2. Some debris or blood within the nasal cavity. Chest/Abdomen/Pelvis CTA 11/10/19 08:23 IMPRESSION: 1. No aortic aneurysm or dissection. 2. Airspace disease in the left lower lobe with differential including pneumonia, aspiration pneumonitis and atelectasis with small left pleural effusion. 3. Nonspecific mesenteric, periportal and body wall edema with small a
[2019-11-13 08:00] VITALS: BP 111/79; PULSE 91; RESP 20; TEMP 36.8; O2SAT 98
[2019-11-13] MEDS: PANTOPRAZOLE SODIUM IV 40 MG VIAL IV PUSH ×2 (08:05→20:44)
--- NOTE | 2019-11-13 09:31 | PC.NURSE ---
Report given to Josh NICK and patient transferred to room 317-2. Patient belongings sent with patient and all questions answered to Josh
[2019-11-13] MEDS: FAT EMULSIONS IV 20% 250 ML 20.8 ML IVPB (12:45)
[2019-11-13 13:01] LABS: Glucose Point of Care 87 (65-105)
[2019-11-13 14:00] VITALS: BP 135/76; PULSE 75; RESP 18; TEMP 36.8; O2SAT 97
--- NOTE | 2019-11-13 14:10 | PM.IMPN ---
Progress Note: A&P Assessment and Plan (1) Septic shock: Code(s): A41.9 - Sepsis, unspecified organism; R65.21 - Severe sepsis with septic shock Status: Acute Assessment and Plan: 11/13/19 14:10 patient is a 44-year-old female status post bariatric surgery as well as several abdominal surgery resulting in nonfunctional GI track and patient has been on TPN on and off for months patient has a port which is used for the TPN, patient presented emergency department with syncopal episode patient was found to have a fever hypotension, tachycardia leukocytosis initially patient was started on Zosyn and vancomycin for suspected pneumonia, blood culture was collected and patient is positive for fungal infection patient is seen by Dr. cantu and started the patient on micafungin and will need IV antibiotics 10-14 days, patient also has a poor patient need to be removed before discharging the patient, patient may be transferred to [facility] for the port was initially placed them to remove it. Currently patient denies any abdominal pain nausea or vomiting fever or chills, see has been NPO requesting ice chips (2) Severe anemia: Code(s): D64.9 - Anemia, unspecified Status: Acute Assessment and Plan: r/o occult GI bleed given the patient has a history of PUD and multiple gastric ulcers w/ previous GI bleed in the past. She may also have severe anemia from low production from malnutrition. She does not appear to be hemolyzing as her platelets are not low. Continue pRBC transfusion. Monitor H/H, Continue IV PPI therapy. GI Consult today. (3) Leukocytosis: Qualifiers: Leukocytosis type: unspecified Qualified Code(s): D72.829 - Elevated white blood cell count, unspecified Code(s): D72.829 - Elevated white blood cell count, unspecified Status: Acute Assessment and Plan: Secondary to septic shock. Monitor CBCd. (4) Thrombocytosis: Code(s): D47.3 - Essential (hemorrhagic) thrombocythemia Status: Acute Assessment and Plan: Likely reactive from sepsis. Monitor platelets. (5) Hyponatremia: Code(s): E87.1 - Hypo-osmolality and hyponatremia Status: Acute Assessment and Plan: Monitor serum sodium. I suspect this will improve w/ IV fluids. (6) Hypokalemia: Code(s): E87.6 - Hypokalemia Status: Acute Assessment and Plan: Potassium replacement as needed. Monitor serum potassium. (7) Lactic acidosis: Code(s): E87.2 - Acidosis Status: Acute Assessment and Plan: Secondary to septic shock. Check reflex lactic acid. (8) Malnutrition: Qualifiers: Malnutrition type: unspecified type Qualified Code(s): E46 - Unspecified protein-calorie malnutrition Code(s): E46 - Unspecified protein-calorie malnutrition Status: Chronic Assessment and Plan: Continue TPN nutrition. (9) Chronic pain syndrome: Code(s): G89.4 - Chronic pain syndrome Status: Chronic Assessment and Plan: Resume home pain medications when appropriate. Subjective Date/time seen: 11/13/19 14:10 patient is a 44-year-old female status post bariatric surgery as well as several abdominal surgery resulting in nonfunctional GI track and patient has been on TPN on and off for months patient has a port which is used for the TPN, patient presented emergency department with syncopal episode patient was found to have a fever hypotension, tachycardia leukocytosis initially patient was started on Zosyn and vancomycin for suspected pneumonia, blood culture was collected and patient is positive for fungal infection patient is seen by Dr. catnu and started the patient on micafungin and will need IV antibiotics 10-14 days, patient also has a poor patient need to be removed before discharging the patient, patient may be transferred to [facility] for the port was initially placed them to remove it. Currently jerel
[2019-11-13 16:48] LABS: Lactic Acid 0.7 mmol/L (0.7-2.1)
[2019-11-13 19:36] LABS: Glucose Point of Care 100 (65-105)
[2019-11-13] MEDS: MICAFUNGIN SODIUM 100 MG in SODIUM CHLORIDE 0.9% IV 100 ML IVPB (20:44)
[2019-11-14] VITALS: BP 133/67; PULSE 116; RESP 20; TEMP 38.2; O2SAT 93
[2019-11-14 00:23] LABS: Glucose Point of Care 108 (65-105)
--- NOTE | 2019-11-14 03:37 | PC.NURSE ---
Daylight Savings Time For Daylight Savings Time Ending in the Fall - Clocks are moved back. For Daylight Savings Time Beginning in the Spring - Clocks are moved ahead. For [facility], the time of change occurs at 0200 hrs. Time is taken from the chief service observer. This entry on the patient's chart recognizes the change in time reflected during documentation. Example: 2 entries for vital signs may be charted for 0200 hrs.
[2019-11-14 06:00] VITALS: BP 115/69; PULSE 105; RESP 18; TEMP 38.2; O2SAT 95
[2019-11-14 06:10] LABS: Glucose Point of Care 109 (65-105)
[2019-11-14 06:30] LABS: Lactic Acid 0.6 mmol/L (0.7-2.1); Magnesium 1.4 mg/dL (1.6-2.3); Phosphorus 3.1 mg/dL (2.5-4.5)
[2019-11-14 06:31] LABS: Blood Urea Nitrogen 6 mg/dL (7-17); Calcium 6.9 mg/dL (8.4-10.2); Carbon Dioxide 24 mmol/L (22-30); Chloride 99 mmol/L (98-107); Estimated CRCL calculation 81 ml/min; Estimated Glomerular Filt Rate > 60; Glucose 98 mg/dL (65-105); Phosphorus 3.1 mg/dL (2.5-4.5); Potassium 2.9 mmol/L (3.4-5.0); Sodium 130 mmol/L (137-145)
[2019-11-14] MEDS: ONDANSETRON INJ 4 MG/2 ML VIAL IV PUSH (09:51)
[2019-11-14] MEDS: MAGNESIUM SULF 2 GM/WATER 50ML 2 GM/50 ML BAG IVPB (09:52)
[2019-11-14] MEDS: PANTOPRAZOLE SODIUM IV 40 MG VIAL IV PUSH ×2 (09:54→21:34)
[2019-11-14 11:19] LABS: Triglycerides 198 mg/dL (<150)
[2019-11-14 11:52] LABS: Glucose Point of Care 114 (65-105)
[2019-11-14] MEDS: FAT EMULSIONS IV 20% 250 ML 20.8 ML IVPB (12:57)
--- NOTE | 2019-11-14 13:09 | PM.IMPN ---
Progress Note: A&P Assessment and Plan (1) Septic shock: Code(s): A41.9 - Sepsis, unspecified organism; R65.21 - Severe sepsis with septic shock Status: Acute Assessment and Plan: 11/14/19 13:09 patient is a 44-year-old female status post bariatric surgery as well as several abdominal surgery resulting in nonfunctional GI track and patient has been on TPN on and off for months patient has a port which is used for the TPN, patient presented emergency department with syncopal episode patient was found to have a fever hypotension, tachycardia leukocytosis initially patient was started on Zosyn and vancomycin for suspected pneumonia, blood culture was collected and patient is positive for fungal infection patient is seen by Dr. cantu and started the patient on micafungin and will need IV antibiotics 10-14 days, patient also has a port, it needs to be removed before discharging the patient, patient may be transferred to [facility] for the port removal was initially placed, have them to remove it however patient does not wish to be transferred to the [facility]. patient has gastric ulcer and possibly fistula, she is seen by GI, will continue PPI, Currently patient denies any abdominal pain nausea or vomiting fever or chills, see has been NPO requesting ice chips, today patient states feeling better abdominal pain is persisting denies any fever or chills, will consult surgeon to remove the port (2) Severe anemia: Code(s): D64.9 - Anemia, unspecified Status: Acute Assessment and Plan: r/o occult GI bleed given the patient has a history of PUD and multiple gastric ulcers w/ previous GI bleed in the past. She may also have severe anemia from low production from malnutrition. She does not appear to be hemolyzing as her platelets are not low. Continue pRBC transfusion. Monitor H/H, Continue IV PPI therapy. GI Consult today. (3) Leukocytosis: Qualifiers: Leukocytosis type: unspecified Qualified Code(s): D72.829 - Elevated white blood cell count, unspecified Code(s): D72.829 - Elevated white blood cell count, unspecified Status: Acute Assessment and Plan: Secondary to septic shock. Monitor CBCd. (4) Thrombocytosis: Code(s): D47.3 - Essential (hemorrhagic) thrombocythemia Status: Acute Assessment and Plan: Likely reactive from sepsis. Monitor platelets. (5) Hyponatremia: Code(s): E87.1 - Hypo-osmolality and hyponatremia Status: Acute Assessment and Plan: Monitor serum sodium. I suspect this will improve w/ IV fluids. (6) Hypokalemia: Code(s): E87.6 - Hypokalemia Status: Acute Assessment and Plan: Potassium replacement as needed. Monitor serum potassium. (7) Lactic acidosis: Code(s): E87.2 - Acidosis Status: Acute Assessment and Plan: Secondary to septic shock. Check reflex lactic acid. (8) Malnutrition: Qualifiers: Malnutrition type: unspecified type Qualified Code(s): E46 - Unspecified protein-calorie malnutrition Code(s): E46 - Unspecified protein-calorie malnutrition Status: Chronic Assessment and Plan: Continue TPN nutrition. (9) Chronic pain syndrome: Code(s): G89.4 - Chronic pain syndrome Status: Chronic Assessment and Plan: Resume home pain medications when appropriate. Subjective Date/time seen: 11/14/19 13:09 patient is a 44-year-old female status post bariatric surgery as well as several abdominal surgery resulting in nonfunctional GI track and patient has been on TPN on and off for months patient has a port which is used for the TPN, patient presented emergency department with syncopal episode patient was found to have a fever hypotension, tachycardia leukocytosis initially patient was started on Zosyn and vancomycin for suspected pneumonia, blood culture was collected and patient is positive for fungal infection patient is s
[2019-11-14 14:00] VITALS: BP 102/65; PULSE 82; RESP 18; TEMP 36.6; O2SAT 98
[2019-11-14 20:11] LABS: Blood Urea Nitrogen 7 mg/dL (7-17); Calcium 7.4 mg/dL (8.4-10.2); Carbon Dioxide 24 mmol/L (22-30); Chloride 100 mmol/L (98-107); Estimated CRCL calculation 96 ml/min; Estimated Glomerular Filt Rate > 60; Glucose 91 mg/dL (65-105); Potassium 3.6 mmol/L (3.4-5.0); Sodium 131 mmol/L (137-145)
[2019-11-14] MEDS: MICAFUNGIN SODIUM 100 MG in SODIUM CHLORIDE 0.9% IV 100 ML IVPB (21:33)
[2019-11-14 22:00] VITALS: BP 108/70; PULSE 85; RESP 18; TEMP 37.1; O2SAT 96
[2019-11-15] VITALS (8 sets, daily range): BP systolic 82–118; BP diastolic 46–66; PULSE 62–72; RESP 7–18; TEMP 36.2–37.3; O2SAT 96–100
[2019-11-15 01:41] LABS: Glucose Point of Care 99 (65-105)
[2019-11-15 04:58] LABS: Basophils Absolute Auto 0.1 K/mm3 (0.0-0.1); Basophils Percent Auto 0.4 % (0.2-1.2); Eosinophils Absolute Auto 0.2 K/mm3 (0-0.3); Hematocrit 23.6 % (37.0-47.0); Hemoglobin 7.7 g/dL (12.0-15.0); Immature Granulocyte Absolute 0.08 K/mm3 (0.00-0.031); Immature Granulocyte Percent A 0.6 % (0-0.5); Lymphocytes Absolute Auto 1.72 K/mm3 (0.9-3.2); Mean Corpuscular HGB Conc 32.6 g/dl (32-36); Mean Corpuscular Volume 95.2 fl (80-100); Mean Platelet Volume 10.9 fl (7.4-10.4); Monocytes Percent Auto 6.8 % (2.6-8.5); Neutrophils Absolute Auto 11.3 K/mm3 (1.3-6.7); Neutrophils Percent Auto 79.2 % (45.5-73.1); Platelet Count Result 535 k/mm3 (150-375); Red Blood Count 2.48 M/mm3 (4.2-5.4); Red Cell Distribution Width 17.4 % (11.5-14.5); White Blood Count 14.3 K/mm3 (4.5-10.0)
[2019-11-15 05:10] LABS: Lactic Acid 0.5 mmol/L (0.7-2.1)
[2019-11-15 05:11] LABS: Alanine Aminotransferase 13 U/L (4-35); Albumin Level 2.2 g/dL (3.5-5.1); Alkaline Phosphatase 141 U/L (38-126); Aspartate Amino Transferase 14 U/L (14-36); Bilirubin,Total 0.2 mg/dL (0.2-1.3); Blood Urea Nitrogen 7 mg/dL (7-17); Calcium 7.6 mg/dL (8.4-10.2); Carbon Dioxide 26 mmol/L (22-30); Chloride 103 mmol/L (98-107); Estimated CRCL calculation 96 ml/min; Estimated Glomerular Filt Rate > 60; Glucose 99 mg/dL (65-105); Phosphorus 3.4 mg/dL (2.5-4.5); Potassium 3.5 mmol/L (3.4-5.0); Sodium 131 mmol/L (137-145)
[2019-11-15 05:16] LABS: INR 1.1; Prothrombin Time 14.2 Seconds (11.1-14.7)
[2019-11-15 05:17] LABS: Partial Thromboplastin Time 33.6 SECONDS (22.3-36.8)
[2019-11-15 05:57] LABS: Transferrin 82 mg/dL (206-381)
[2019-11-15 08:21] LABS: Glucose Point of Care 103 (65-105)
[2019-11-15] MEDS: PANTOPRAZOLE SODIUM IV 40 MG VIAL IV PUSH ×2 (09:38→21:29)
--- NOTE | 2019-11-15 11:32 | WPDGIPROGNO ---
Progress Note: A&P Additional Plan Patient alert and comfortable this morning. On antibiotics per infectious disease service. Physical exam reveals HEENT exam with poor dentition. Lungs are clear. Abdomen is soft and nontender. J-tube site appears well healed. Impression 1. History of gastric bypass. 2. Gastric ulceration in the gastric remnant. This has not responded to medical therapy. Surgery is following with surgery anticipated [facility] eventually. 3. History of perigastric abscess. This was drained at [facility]. 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 Plan is to continue PPI therapy. Nutrition via J-tube. And TPN as required. Anticipate follow-up with Gastroenterology in surgical service at [facility] period where she is a long-term patient. Subjective Date/time seen: 11/15/19 11:32 Objective Data Vital Signs Vital Signs: Vital Signs - 24 hr 11/14/19 14:00 11/14/19 22:00 11/15/19 06:00 Temperature 36.6 C 37.1 C 36.7 C Pulse Rate 82 85 71 Respiratory Rate 18 18 18 Blood Pressure 102/65 108/70 102/61 Pulse Oximetry 98 96 99 Intake/Output Intake/Output: Intake & Output 11/12/19 11/13/19 11/14/19 11/15/19 22:59 22:59 23:59 23:59 Intake Total 473 Output Total 2600 Balance -2127 Meds/Results Medications: Active Medications Generic Name Dose Route Start Last Admin Trade Name Freq PRN Reason Stop Dose Admin Fentanyl Citrate 12.5 mcg 11/11/19 12:53 11/15/19 09:38 Sublimaze IV PUSH 12.5 mcg Q4H PRN Administration Pain Rated 7-10 Heparin Sodium (Beef Lung) 50 units 11/10/19 09:00 11/14/19 09:53 Heparin Flush 50 Units/5 Ml IV PUSH 50 units QAM EVER Administration Heparin Sodium (Beef Lung) 50 units 11/10/19 07:52 Heparin Flush 50 Units/5 Ml IV PUSH PRN PRN after intermittent infusion Heparin Sodium (Beef Lung) 50 units 11/10/19 07:52 Heparin Flush 50 Units/5 Ml IV PUSH PRN PRN after blood draws Heparin Sodium (Porcine) 500 units 11/10/19 07:52 Heparin Sod Flush 100 Units/Ml IV PUSH PRN PRN see comments below Dextrose 1,000 mls @ 50 mls/hr 11/11/19 10:05 Dextrose 10% IV CONT .Q20H PRN if PN is interrupted Multivitamins 5 ml/ Amino 2,005 mls @ 30 mls/hr 11/11/19 12:00 11/15/19 05:10 Acids/Electrolytes/Dextrose IV CONT 30 mls/hr .Q24H EVER Infusion Protocol Fat Emulsion Intravenous 250 mls @ 20.833 mls/hr 11/11/19 12:00 11/15/19 00:59 Lipids 20% IVPB Infused Q24H EVER Infusion Micafungin Sodium 100 mg/ 100 mls @ 100 mls/hr 11/11/19 21:00 11/14/19 22:33 Sodium Chloride IVPB Infused Q24H EVER Infusion Potassium Chloride 500 mls @ 125 mls/hr 11/15/19 08:24 11/15/19 09:45 Kcl 40 Meq/D5w 500 Ml Peripheral IVPB 11/15/19 12:23 125 mls/hr ONCE ONE Administration Ondansetron HCl 4 mg 11/10/19 04:43 11/14/19 09:51 Zofran Inj IV PUSH 4 mg Q4H PRN Administration Nausea Pantoprazole Sodium 40 mg 11/10/19 09:00 11/15/19 09:38 Protonix Iv IV PUSH 40 mg Q12HR EVER Administration Radiology Results: ITS Impressions Head CT 11/09/19 23:58 IMPRESSION: No acute intracranial findings. Head/Cervical Spine/Facial Bones CT 11/10/19 00:02 IMPRESSION: 1. No acute facial or cervical fracture. 2. Some debris or blood within the nasal cavity. Chest/Abdomen/Pelvis CTA 11/10/19 08:23 IMPRESSION: 1. No aortic aneurysm or dissection. 2. Airspace disease in the left lower lobe with differential including pneumonia, aspiration pneumonitis and atelectasis with small left pleural effusion. 3. Nonspecific mesenteric, periportal and body wall edema with small amount of ascites in the abdomen and pelvis. 4. 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 Chest X-Ray 11/11/19 09:43 IMPRESSION:
--- NOTE | 2019-11-15 12:44 | WPDINFPN2 ---
Progress Note: A&P Assessment and Plan (1) Septicemia due to fungus: Code(s): A41.89 - Other specified sepsis; B49 - Unspecified mycosis Status: Acute Assessment and Plan: 1. C glabrata septicemia due to Port infection, still febrile 2. Lung infiltrates due to fluid overload, no pneumonia 3. Chronic TPN (4 weeks during most recent bout) 4. Past gastric bypass REC Micafungin # 5 / 10-14 days. The port should be removed prior to discharge, Dr. Knowles to see. Ok with me for triple lumen catheter for her ongoing TPN, avoiding new port for 2 + weeks or so. Azoles are ineffective for this organism. Subjective Date/time seen: 11/15/19 12:44 Interval history: no chills no chest pain Exam Narrative: Exam Narrative: t max 38.2 Const: General: no acute distress Eyes: General: appearance normal, both eyes and all related structures Resp: Effort & Inspection: normal respiratory effort Auscultation: clear to auscultation bilaterally Cardio: Rate: regular rate Rhythm: regular rhythm Heart sounds: no gallops and no murmurs GI: GI Palp: Yes Soft to palpation Skin: General skin exam: normal color and no rashes or lesions noted Other: port site accessed, no skin breakdown and no tenderness Objective Data Vital Signs Vital Signs: Vital Signs - 24 hr 11/14/19 14:00 11/14/19 22:00 11/15/19 06:00 Temperature 36.6 C 37.1 C 36.7 C Pulse Rate 82 85 71 Respiratory Rate 18 18 18 Blood Pressure 102/65 108/70 102/61 Pulse Oximetry 98 96 99 Intake/Output Intake/Output: Intake & Output 11/12/19 11/13/19 11/14/19 11/15/19 22:59 22:59 23:59 23:59 Intake Total 473 Output Total 2600 Balance -2127 Meds/Results Medications: Active Medications Generic Name Dose Route Start Last Admin Trade Name Freq PRN Reason Stop Dose Admin Fentanyl Citrate 12.5 mcg 11/11/19 12:53 11/15/19 09:38 Sublimaze IV PUSH 12.5 mcg Q4H PRN Administration Pain Rated 7-10 Heparin Sodium (Beef Lung) 50 units 11/10/19 09:00 11/15/19 11:42 Heparin Flush 50 Units/5 Ml IV PUSH Not Given QAM EVER Heparin Sodium (Beef Lung) 50 units 11/10/19 07:52 Heparin Flush 50 Units/5 Ml IV PUSH PRN PRN after intermittent infusion Heparin Sodium (Beef Lung) 50 units 11/10/19 07:52 Heparin Flush 50 Units/5 Ml IV PUSH PRN PRN after blood draws Heparin Sodium (Porcine) 500 units 11/10/19 07:52 Heparin Sod Flush 100 Units/Ml IV PUSH PRN PRN see comments below Dextrose 1,000 mls @ 50 mls/hr 11/11/19 10:05 Dextrose 10% IV CONT .Q20H PRN if PN is interrupted Multivitamins 5 ml/ Amino 2,005 mls @ 30 mls/hr 11/11/19 12:00 11/15/19 05:10 Acids/Electrolytes/Dextrose IV CONT 30 mls/hr .Q24H EVER Infusion Protocol Fat Emulsion Intravenous 250 mls @ 20.833 mls/hr 11/11/19 12:00 11/15/19 00:59 Lipids 20% IVPB Infused Q24H EVER Infusion Micafungin Sodium 100 mg/ 100 mls @ 100 mls/hr 11/11/19 21:00 11/14/19 22:33 Sodium Chloride IVPB Infused Q24H EVER Infusion Cefazolin Sodium 2 gm in 50 mls @ 100 mls/hr 11/15/19 15:00 Ancef 2 Gm/D5w 50 Ml IVPB 11/15/19 15:29 ONCE ONE Ondansetron HCl 4 mg 11/10/19 04:43 11/14/19 09:51 Zofran Inj IV PUSH 4 mg Q4H PRN Administration Nausea Pantoprazole Sodium 40 mg 11/10/19 09:00 11/15/19 09:38 Protonix Iv IV PUSH 40 mg Q12HR EVER Administration Radiology Results: ITS Impressions Head CT 11/09/19 23:58 IMPRESSION: No acute intracranial findings. Head/Cervical Spine/Facial Bones CT 11/10/19 00:02 IMPRESSION: 1. No acute facial or cervical fracture. 2. Some debris or blood within the nasal cavity. Chest/Abdomen/Pelvis CTA 11/10/19 08:23 IMPRESSION: 1. No aortic aneurysm or dissection. 2. Airspace disease in the left lower lobe with differential including pneumonia, aspiration pneumonitis and atelectasis with small left pl
[2019-11-15 12:50] LABS: Glucose Point of Care 117 (65-105)
--- NOTE | 2019-11-15 13:35 | PM.IMPN ---
Progress Note: A&P Assessment and Plan (1) Septic shock: Code(s): A41.9 - Sepsis, unspecified organism; R65.21 - Severe sepsis with septic shock Status: Acute Assessment and Plan: 11/15/19 13:35 patient is a 44-year-old female status post bariatric surgery as well as several abdominal surgery resulting in nonfunctional GI track and patient has been on TPN on and off for months patient has a port which is used for the TPN, patient presented emergency department with syncopal episode patient was found to have a fever hypotension, tachycardia leukocytosis initially patient was started on Zosyn and vancomycin for suspected pneumonia, blood culture was collected and patient is positive for fungal infection with C glabrata septicemia due to Port infection, patient is seen by Dr. cantu and started the patient on micafungin and will need IV antibiotics 10-14 days, patient also has a port, it needs to be removed before discharging the patient, patient may be transferred to [facility] for the port removal was initially placed, have them to remove it however patient does not wish to be transferred to the [facility]. patient has gastric ulcer and possibly fistula, she is seen by GI, will continue PPI, Currently patient denies any abdominal pain nausea or vomiting fever or chills, she has been NPO requesting ice chips, today patient states feeling better abdominal pain is persisting denies any fever or chills, will consult surgeon to remove the port (2) Severe anemia: Code(s): D64.9 - Anemia, unspecified Status: Acute Assessment and Plan: r/o occult GI bleed given the patient has a history of PUD and multiple gastric ulcers w/ previous GI bleed in the past. She may also have severe anemia from low production from malnutrition. She does not appear to be hemolyzing as her platelets are not low. Continue pRBC transfusion. Monitor H/H, Continue IV PPI therapy. GI Consult today. (3) Leukocytosis: Qualifiers: Leukocytosis type: unspecified Qualified Code(s): D72.829 - Elevated white blood cell count, unspecified Code(s): D72.829 - Elevated white blood cell count, unspecified Status: Acute Assessment and Plan: Secondary to septic shock. Monitor CBCd. (4) Thrombocytosis: Code(s): D47.3 - Essential (hemorrhagic) thrombocythemia Status: Acute Assessment and Plan: Likely reactive from sepsis. Monitor platelets. (5) Hyponatremia: Code(s): E87.1 - Hypo-osmolality and hyponatremia Status: Acute Assessment and Plan: Monitor serum sodium. I suspect this will improve w/ IV fluids. (6) Hypokalemia: Code(s): E87.6 - Hypokalemia Status: Acute Assessment and Plan: Potassium replacement as needed. Monitor serum potassium. (7) Lactic acidosis: Code(s): E87.2 - Acidosis Status: Acute Assessment and Plan: Secondary to septic shock. Check reflex lactic acid. (8) Malnutrition: Qualifiers: Malnutrition type: unspecified type Qualified Code(s): E46 - Unspecified protein-calorie malnutrition Code(s): E46 - Unspecified protein-calorie malnutrition Status: Chronic Assessment and Plan: Continue TPN nutrition. (9) Chronic pain syndrome: Code(s): G89.4 - Chronic pain syndrome Status: Chronic Assessment and Plan: Resume home pain medications when appropriate. Subjective Date/time seen: 11/15/19 13:35 patient is a 44-year-old female status post bariatric surgery as well as several abdominal surgery resulting in nonfunctional GI track and patient has been on TPN on and off for months patient has a port which is used for the TPN, patient presented emergency department with syncopal episode patient was found to have a fever hypotension, tachycardia leukocytosis initially patient was started on Zosyn and vancomycin for suspected pneumonia, blood culture was collected and pat
--- NOTE | 2019-11-15 15:21 | PM.CNGS ---
Assessment and Plan Assessment and plan (1) Septicemia due to fungus: Code(s): A41.89 - Other specified sepsis; B49 - Unspecified mycosis Status: Acute Assessment and Plan: Patient is currently being treated for bloodstream infection due to fungus. Infectious Disease is following patient and is recommending removal of Port-A-Cath. Discussed with patient that this will be necessary to allow for infection to completely resolve. Will plan to remove Port-A-Cath in the OR today. Discussed procedure, risks, benefits, and alternatives. All questions were answered. History of Present Illness Consult details Consult date: 11/15/19 Reason for consult: other (Infected Port-A-Cath) Narrative: This is a 44-year-old woman who is currently hospitalized with a bloodstream infection. She was found to have a fungal infection in her blood and is being treated by Infectious Disease. She has a history of gastric bypass and was recently found to have an intra-abdominal infection which was treated by percutaneous drainage at [facility]. She has a Port-A-Cath that was placed in the past for iron infusions for chronic anemia. They have been using her Port for TPN. Due to the blood stream infection, the port needs to be removed. She currently has a left arm PICC line in place and is receiving antifungals through this. Review of Systems Review of Systems: All systems reviewed & are unremarkable except as noted in HPI and below Eyes: Eyes: Denies change in vision ENT: Denies hearing loss, Denies neck pain and Denies sore throat Cardiovascular: Cardiovascular: Denies chest pain and Denies dyspnea Respiratory: Respiratory: Denies cough, Denies dyspnea and Denies wheezing Gastrointestinal: Gastrointestinal: Denies abdominal pain Genitourinary: Genitourinary: Denies hematuria and Denies dysuria Musculoskeletal: Musculoskeletal: Denies arthralgias, Denies joint swelling and Denies neck pain Allergic/Immunologic: Allergic/Immunologic: Denies wheezing PMFSH Past Medical History Medical History On total parenteral nutrition (TPN) Peptic ulcer disease Perforated peptic ulcer Status post exploratory laparotomy in ~ 2018 Port-A-Cath in place Severe protein-calorie malnutrition Surgical History Surgical History Gastrostomy tube in place History of gastric bypass Approximately 2009. Status post exploratory laparotomy For reported perforated gastric ulcer in about 2018. Status post tonsillectomy and adenoidectomy Family History Family History Mother Acute myocardial infarction Mother of an AL in her sleep at age 69. Father Diabetes mellitus Heart disease Chronic kidney disease Social History Social History Social History: Patient lives in [place], [place]. She is single and has no children. She has a pug that lives at home with her. 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 She smokes 1 pack of cigarettes per day off and on for about 20 years and quit 2 months ago. She denies alcohol and drug use. Smoking packs per day: 1 Smoking cigarettes per day: 20.0 Years smoked: 20 Smoking pack-years: 20.00 Smoking status: Former smoker Tobacco type: cigarettes Second hand tobacco smoke exposure: No Alcohol intake: never Substance use: never Additional living arrangements comments: short term rehabilitation Gender identity (if verbalized by the patient): Female Spiritual care concerns: No Agree to blood products: Yes Meds Home Medications and Allergies Home Medications Medication Instructions Recorded Confirmed Type artificial saliva (cmce-lytes) 3 spray PO TID PRN 10/30/
--- NOTE | 2019-11-15 15:39 | PC.NURSE ---
To OR at 1337
[2019-11-15 15:49] LABS: Glucose Point of Care 80 (65-105)
--- NOTE | 2019-11-15 15:54 | WPDANESEPPF ---
Anes - Initial Pre Proc Eval Procedure: Operation Date: 11/11/19 10:30 Proposed Procedures p Esophagogastroduodenoscopy - Derick Bello MD Operation Date: 11/15/19 16:30 Proposed Procedures p Removal [place] Cath - Douglas Knowles DO Date/Time: 11/15/19 15:54 Surgeon: Garrett Lozano MD Pre Op Diagnosis: SEVERE SEPSIS,PNEUMONIA,ANEMIA Patient Data Age: 44 Gender: F Height: 5 ft 6 in Weight: 45.2 kg Last Vital Signs Temp 36.7 C 11/15/19 06:00 Pulse 71 11/15/19 06:00 Resp 18 11/15/19 06:00 BP 102/61 11/15/19 06:00 Pulse Ox 99 11/15/19 06:00 Allergies Allergy/AdvReac Type Severity Reaction Status Date / Time No Known Allergies Allergy Verified 10/28/19 02:33 Home Medications Medication Instructions Recorded Confirmed Type artificial saliva (cmce-lytes) 3 spray PO TID PRN 10/30/19 11/10/19 History ergocalciferol (vitamin D2) 6.3 ml FEEDING TUBE WEEKLY 10/30/19 11/10/19 History gabapentin 600 mg FEEDING TUBE TID 10/30/19 11/10/19 History hydroxyzine HCl 10 mg FEEDING TUBE QID PRN 10/30/19 11/10/19 History iron sucrose 500 mg IV WEEKLY 10/30/19 11/10/19 History lidocaine 1 patch TOPICAL DAILY 10/30/19 11/10/19 History loperamide 4 mg FEEDING TUBE QID PRN 10/30/19 11/10/19 History dnviqcjt-skj-ntvquro gluconate 15 ml FEEDING TUBE BID 10/30/19 11/10/19 History [Centrum] sertraline 150 mg FEEDING TUBE HS 10/30/19 11/10/19 History sucralfate 1 g FEEDING TUBE QID 10/30/19 11/10/19 History acetaminophen 650 mg PO Q6H PRN 11/10/19 11/10/19 History mvi, adult no.4 with vit K 15 ml IV DAILY 11/10/19 11/10/19 History [Infuvite Adult] Laboratory Tests 11/14/19 11/15/19 11/15/19 19:44 01:35 04:42 WBC RBC Hgb Hct MCV MCH MCHC RDW Plt Count MPV Immature Gran % (Auto) Neut % (Auto) Lymph % (Auto) [place] % (Auto) Eos % (Auto) Baso % (Auto) Lymph # (Auto) [place] # (Auto) Eos # (Auto) Baso # (Auto) Abs Immat Gran (auto) Absolute Neuts (auto) Absolute Nucleated RBC Nucleated RBC % PT INR APTT Sodium 131 mmol/L L mmol/L (137-145) Potassium 3.6 mmol/L mmol/L (3.4-5.0) Chloride 100 mmol/L mmol/L (98-107) Carbon Dioxide 24 mmol/L mmol/L (22-30) BUN 7 mg/dL mg/dL (7-17) Creatinine 0.50 mg/dL L mg/dL (0.7-1.0) Estim Creat Clear Calc 96 ml/min ml/min Estimated GFR > 60 (59 - ) Glucose 91 mg/dL mg/dL (65-105) POC Capillary Glucose 99 mg/dl mg/dl (65-105) Lactic Acid 0.5 mmol/L L mmol/L (0.7-2.1) Calcium 7.4 mg/dL L mg/dL (8.4-10.2) Phosphorus Magnesium Transferrin Total Bilirubin AST ALT Alkaline Phosphatase Total Protein Albumin 11/15/19 11/15/19 11/15/19 04:42 04:42 04:42 WBC 14.3 K/mm3 H K/mm3 (4.5-10.0) RBC 2.48 M/mm3 L M/mm3 (4.2-5.4) Hgb 7.7 g/dL L g/dL (12.0-15.0) Hct 23.6 % L % (37.0-47.0) MCV 95.2 fl fl (80-100) MCH 31.0 pg pg (26-34) MCHC 32.6 g/dl g/dl (32-36) RDW 17.4 % H % (11.5-14.5) Plt Count 535 k/mm3 H k/mm3 (150-375) MPV 10.9 fl H fl (7.4-10.4) Immature Gran % (Auto) 0.6 % H % (0-0.5) Neut % (Auto) 79.2 % H % (45.5-73.1) Lymph % (Auto) 12.0 % L % (18.3-44.2) [place] % (Auto) 6.8 % % (2.6-8.5) Eos % (Auto) 1.0 % % (0-4.4) Baso % (Auto) 0.4 % % (0.2-1.2) Lymph # (Auto) 1.72 K/mm3 K/mm3 (0.9-3.2) Mon
[2019-11-15] MEDS: LACTATED RINGERS 1,000 ML 30 ML IV CONT (16:29)
[2019-11-15] MEDS: ceFAZolin 2 GM/D5W 50 ML 2 GM/50 ML BAG IVPB (16:58)
[2019-11-15] MEDS: LIDO 1%/EPINEPHRINE 1:100,000 20 ML VIAL INFILTRATE (17:00)
--- NOTE | 2019-11-15 17:17 | P.OP_ITS ---
Procedure Note - Detailed Date of procedure: 11/15/19 Pre-op diagnosis: SEVERE SEPSIS,PNEUMONIA,ANEMIA Post-op diagnosis: same Procedure performed: Removal of Port-A-Cath Description of procedure: * Procedure as well as risks, benefits, and alternatives were discussed with the patient. Written consent was obtained and placed in chart prior to procedure. Patient was brought back to surgical suite. She was placed supine operating table. IV sedation was then administered by Anesthesia Department. Her right chest and neck area was prepped and draped in sterile fashion using chlorhexidine prep. 1% lidocaine with epinephrine was infiltrated directly over the port. a 3 cm transverse incision was made directly over the port using a 15 blade scalpel. Electrocautery was used for hemostasis and for dissection down through the subcutaneous tissue. The port was encountered and it was freed up circumferentially from the subcutaneous attachments. The port was then delivered through the incision. A 3 0 Vicryl [id number] suture was placed along the catheter tubing tract. The catheter was then carefully withdrawn until it was removed completely. The 3 0 Vicryl was then tied down in place. Pressure was then placed at the insertion site at the base of the neck for several minutes. Herber's fascia was then reapproximated using 3 0 Vicryl simple interrupted sutures. The skin was then reapproximated using 4 Monocryl running subcuticular suture. The patient was then awakened from anesthesia and transferred to recovery. Anesthesia: MAC and local (1% lidocaine with epinephrine) Surgeon: Douglas Knowles DO Estimated blood loss (mL): 5 Complications: No immediate complications Condition: stable Disposition: floor Findings: This is a 44-year-old woman who presented to the hospital with severe sepsis. She was found to have fungal bacteremia. Infectious disease is been following patient and she is currently on IV micafungin. Recommendation is to remove her port that has been and place as this is a possible nidus for infection. Discussions were made with the patient about treatment options, and decision was made to proceed with removal of Port-A-Cath. Port-A-Cath removal was performed. The port did not appear to have any purulence fluid surrounding it. No other significant abnormalities were noted, and the port appeared intact with the catheter tip intact. This was sent to the lab for pathology.
--- NOTE | 2019-11-15 17:53 | SUR.PHASEI ---
[id number] sbar faxed, floor notified
--- NOTE | 2019-11-15 18:17 | PC.NURSE ---
Returned from OR at 1610.
[2019-11-15] MEDS: FAT EMULSIONS IV 20% 250 ML 20.8 ML IVPB (18:44)
[2019-11-15 19:48] LABS: Glucose Point of Care 109 (65-105)
[2019-11-15] MEDS: MICAFUNGIN SODIUM 100 MG in SODIUM CHLORIDE 0.9% IV 100 ML IVPB (21:35)
[2019-11-15 21:48] LABS: Glucose Point of Care 123 (65-105)
[2019-11-16 01:47] LABS: Glucose Point of Care 136 (65-105)
[2019-11-16 06:00] VITALS: BP 108/60; PULSE 62; RESP 16; TEMP 36.3; O2SAT 98
[2019-11-16 06:42] LABS: Glucose Point of Care 133 (65-105)
--- NOTE | 2019-11-16 08:17 | WPDANESPN ---
Anes - Prog Note Post-Op Date/Time: 11/16/19 08:17 Cardiovascular status: normal Respiratory status: normal Airway patency: baseline Mental status: baseline Post-Op hydration status: normal Vital Signs: Last Vital Signs Temp 36.3 C L 11/15/19 21:46 Pulse 62 11/15/19 21:46 Resp 16 11/15/19 21:46 BP 118/58 L 11/15/19 21:46 Pulse Ox 96 11/15/19 21:46 I/O: Intake & Output 11/15/19 11/16/19 11/16/19 23:59 07:59 15:59 Intake Total 2132 Output Total 60 Balance 2072 Laboratory Tests 11/15/19 04:42 11/15/19 11/15/19 11/15/19 08:17 12:47 15:47 Sodium Potassium Chloride Carbon Dioxide BUN Creatinine Estim Creat Clear Calc Estimated GFR Glucose POC Capillary Glucose 103 117 H 80 Calcium Phosphorus 11/15/19 11/15/19 11/16/19 19:43 21:43 01:45 Sodium Potassium Chloride Carbon Dioxide BUN Creatinine Estim Creat Clear Calc Estimated GFR Glucose POC Capillary Glucose 109 123 H 136 H Calcium Phosphorus 11/16/19 11/16/19 05:23 06:37 Sodium Pending Potassium Pending Chloride Pending Carbon Dioxide Pending BUN Pending Creatinine Pending Estim Creat Clear Calc Pending Estimated GFR Pending Glucose Pending POC Capillary Glucose 133 H Calcium Pending Phosphorus Pending Post-procedural complaints: none Patient Feedback: Patient satisfied with anesthetic care.
[2019-11-16 08:41] LABS: Blood Urea Nitrogen 10 mg/dL (7-17); Calcium 7.9 mg/dL (8.4-10.2); Carbon Dioxide 23 mmol/L (22-30); Chloride 101 mmol/L (98-107); Estimated CRCL calculation 104 ml/min; Estimated Glomerular Filt Rate > 60; Glucose 118 mg/dL (65-105); Phosphorus 4.1 mg/dL (2.5-4.5); Potassium 4.3 mmol/L (3.4-5.0); Sodium 130 mmol/L (137-145)
--- NOTE | 2019-11-16 11:16 | WPDGIPROGNO ---
Progress Note: A&P Additional Plan Patient alert more comfortable today. Had PICC line removed yesterday. Physical exam reveals her to be alert. HEENT exam with poor dentition. Lungs are clear. Abdomen is soft, J tube is in good position. Impression 1. History of gastric bypass. Subsequently taken down. Abscesses adjacent to stomach and recent past 2. Chronic gastric ulceration. Not healing with medical therapy. Patient remains on chronic Protonix or other proton pump inhibitors. 3. 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 Noted on previous workup at [facility]. I am somewhat uncertain of the status of this fistula. 4. Fungal septicemia. Now on antibiotics per Dr. Ch. PICC line was removed for this reason. Patient has remained on J-tube feedings and TPN because of malnutrition. It appears as though she should be able to eat. This likely is limited because have her previous drains from perigastric abscess. And also because of gastric ulcerations. Patient was NPO at time of admission the hospital for unclear reasons. It appears as though she could tolerate oral liquid diet. However this may be limited somewhat by J-tube balloon inflation. There also may be a problem if gastro colic fistula is present. If patient is to remain at our institution would suggest contrast studies to include small-bowel follow-through and perhaps lower GI to assess for fistula formation. The studies likely have been performed at [facility]. My understanding was that eventual surgical therapy was anticipated [facility]. Plan is to allow liquid diet if all agree. Consider small-bowel follow-through and lower GI to assess for possible fistula formation. If patient is not to be transferred back to [facility]. Subjective Date/time seen: 11/16/19 11:16 Objective Data Vital Signs Vital Signs: Vital Signs - 24 hr 11/15/19 15:56 11/15/19 16:04 11/15/19 17:20 Temperature 37.3 C 36.8 C 36.2 C L Pulse Rate 72 63 68 Respiratory Rate 16 16 7 L Blood Pressure 99/62 L 95/66 L 82/50 L Pulse Oximetry 100 96 100 11/15/19 17:25 11/15/19 17:35 11/15/19 17:50 Temperature Pulse Rate 64 65 65 Respiratory Rate 12 12 12 Blood Pressure 86/46 L 84/49 L 92/54 L Pulse Oximetry 100 98 97 11/15/19 21:46 11/16/19 06:00 Temperature 36.3 C L 36.3 C L Pulse Rate 62 62 Respiratory Rate 16 16 Blood Pressure 118/58 L 108/60 Pulse Oximetry 96 98 Intake/Output Intake/Output: Intake & Output 11/13/19 11/14/19 11/15/19 11/16/19 22:59 23:59 23:59 23:59 Intake Total 3105 0 Output Total 2660 650 Balance 445 -650 Meds/Results Medications: Active Medications Generic Name Dose Route Start Last Admin Trade Name Freq PRN Reason Stop Dose Admin Fentanyl Citrate 12.5 mcg 11/11/19 12:53 11/16/19 06:38 Sublimaze IV PUSH 12.5 mcg Q4H PRN Administration Pain Rated 7-10 Fentanyl Citrate 25 mcg 11/15/19 15:56 Sublimaze IV PUSH Q2M PRN Pain Heparin Sodium (Beef Lung) 50 units 11/10/19 09:00 11/15/19 11:42 Heparin Flush 50 Units/5 Ml IV PUSH Not Given QAM EVER Heparin Sodium (Beef Lung) 50 units 11/10/19 07:52 Heparin Flush 50 Units/5 Ml IV PUSH PRN PRN after intermittent infusion Heparin Sodium (Beef Lung) 50 units 11/10/19 07:52 11/16/19 05:25 Heparin Flush 50 Units/5 Ml IV PUSH 50 units PRN PRN Administration after blood draws Heparin Sodium (Porcine) 500 units 11/10/19 07:52 Heparin Sod Flush 100 Units/Ml IV PUSH PRN PRN see comments below Dextrose 1,000 mls @ 50 mls/hr 11/11/19 10:05 Dextrose 10% IV CONT .Q20H PRN if PN is interrupted Multivitamins 5 ml/ Amino 2,005 mls @ 30 mls/hr 11/11/19 12:00 11/15/19 18:44 Acids/Electrolytes/Dextrose IV CONT 30 mls/hr .Q24H EVER Administration Protocol Fat Emulsion Intravenous 250 mls @ 20.833 mls/hr 11/11/19 12:00 11/15/19 18:44 Lipids 20% IVPB 20.8 mls/hr Q24H EVER Administration
[2019-11-16] MEDS: PANTOPRAZOLE SODIUM IV 40 MG VIAL IV PUSH ×2 (11:28→20:21)
[2019-11-16 13:23] LABS: Triglycerides 274 mg/dL (<150)
--- NOTE | 2019-11-16 13:28 | PCDIET ---
Nutrition Follow-Up Complete: Underweight R/T inability to consume adequate nutrition as evidence by BMI of 16.8 Total intake will meet estimated kcal needs of 1650 and protein needs of 47-57g daily to promote mild weight gain. Goal: Progressing towards goal. Continue current goal. Pt current nutrition is Clinimix E 01/20 + 250ml lipids at 30ml/hr. Nutrition recommendation: Recommend increasing to goal of 60ml/hr Last recorded weight is 46.9 kg (down from 47.2kg0 Bowel Motility: Green liquid today Labs Reviewed:Na 130, PO4 normal, Glucose 108 Meds Noted:Zofran, Fentanyl, LRs Additional Notes: Pt triglyceride slightly elevated at 198 on 11/13. Recommend watching levels and hanging tirglyucers every other day if necessary. Pt only getting 30m/hr right now proving 1011 kcals and 36g protein meeting 61% of needs. Discussed with MD today and agreed to increased to 45ml/hr and access tolerance. Jtube not being used at this time. Possible gastrocolic fistula per MD notes. Pt asking for ice pack today. RN states no as she was opening it and eating the ice cubes. Pt requesting food and ensure clear. When medially appropriate, feeding an elemental formula via J-tube would be the most appropriate. We will continue to monitor PO intake, wt, labs every T/F.
[2019-11-16 14:00] VITALS: BP 99/61; PULSE 70; RESP 18; TEMP 36.4; O2SAT 97
--- NOTE | 2019-11-16 14:05 | WPDINFPN2 ---
Progress Note: A&P Assessment and Plan (1) Septicemia due to fungus: Code(s): A41.89 - Other specified sepsis; B49 - Unspecified mycosis Status: Acute Assessment and Plan: 1. C glabrata septicemia due to Port infection, temperature is less. Operative findings noted and are favorable, culture in process. 2. Lung infiltrates due to fluid overload, no pneumonia 3. Chronic TPN (4 weeks during most recent bout) 4. Past gastric bypass REC Micafungin # 6 / 10 days. No port replacement for at least 2 weeks. Redo BCs. Subjective Date/time seen: 11/16/19 14:05 Interval history: wants to eat. Dr. Desai has placed diet on hold and I explained that to patient Exam Narrative: Exam Narrative: afebrile since last visit Const: General: no acute distress Neck: Neck: supple Resp: Effort & Inspection: normal respiratory effort Auscultation: clear to auscultation bilaterally Cardio: Rate: regular rate Rhythm: regular rhythm Heart sounds: no murmurs Other: r upper chest with edema at former port pocket, no hematoma apparent and no fluctuance GI: Inspection: non-distended GI Palp: Yes Soft to palpation and No Tenderness to palpation present (GI) Objective Data Vital Signs Vital Signs: Vital Signs - 24 hr 11/15/19 15:56 11/15/19 16:04 11/15/19 17:20 Temperature 37.3 C 36.8 C 36.2 C L Pulse Rate 72 63 68 Respiratory Rate 16 16 7 L Blood Pressure 99/62 L 95/66 L 82/50 L Pulse Oximetry 100 96 100 11/15/19 17:25 11/15/19 17:35 11/15/19 17:50 Temperature Pulse Rate 64 65 65 Respiratory Rate 12 12 12 Blood Pressure 86/46 L 84/49 L 92/54 L Pulse Oximetry 100 98 97 11/15/19 21:46 11/16/19 06:00 Temperature 36.3 C L 36.3 C L Pulse Rate 62 62 Respiratory Rate 16 16 Blood Pressure 118/58 L 108/60 Pulse Oximetry 96 98 Intake/Output Intake/Output: Intake & Output 11/13/19 11/14/19 11/15/19 11/16/19 22:59 23:59 23:59 23:59 Intake Total 3105 0 Output Total 2660 650 Balance 445 -650 Meds/Results Medications: Active Medications Generic Name Dose Route Start Last Admin Trade Name Freq PRN Reason Stop Dose Admin Fentanyl Citrate 12.5 mcg 11/11/19 12:53 11/16/19 11:26 Sublimaze IV PUSH 12.5 mcg Q4H PRN Administration Pain Rated 7-10 Fentanyl Citrate 25 mcg 11/15/19 15:56 Sublimaze IV PUSH Q2M PRN Pain Heparin Sodium (Beef Lung) 50 units 11/10/19 09:00 11/16/19 14:00 Heparin Flush 50 Units/5 Ml IV PUSH Not Given QAM EVER Heparin Sodium (Beef Lung) 50 units 11/10/19 07:52 Heparin Flush 50 Units/5 Ml IV PUSH PRN PRN after intermittent infusion Heparin Sodium (Beef Lung) 50 units 11/10/19 07:52 11/16/19 05:25 Heparin Flush 50 Units/5 Ml IV PUSH 50 units PRN PRN Administration after blood draws Heparin Sodium (Porcine) 500 units 11/10/19 07:52 Heparin Sod Flush 100 Units/Ml IV PUSH PRN PRN see comments below Dextrose 1,000 mls @ 50 mls/hr 11/11/19 10:05 Dextrose 10% IV CONT .Q20H PRN if PN is interrupted Multivitamins 5 ml/ Amino 2,005 mls @ 30 mls/hr 11/11/19 12:00 11/15/19 18:44 Acids/Electrolytes/Dextrose IV CONT 30 mls/hr .Q24H EVER Administration Protocol Fat Emulsion Intravenous 250 mls @ 20.833 mls/hr 11/11/19 12:00 11/15/19 18:44 Lipids 20% IVPB 20.8 mls/hr Q24H EVER Administration Micafungin Sodium 100 mg/ 100 mls @ 100 mls/hr 11/11/19 21:00 11/15/19 22:35 Sodium Chloride IVPB Infused Q24H EVER Infusion Lactated Ringer's 1,000 mls @ 30 mls/hr 11/15/19 15:55 11/15/19 18:04 Lr - Lactated Ringers Iv IV CONT Infused .Q24H EVER Infusion Lactated Ringer's 1,000 mls @ 30 mls/hr 11/15/19 16:00 11/15/19 18:49 Lr - Lactated Ringers Iv IV CONT Not Given .Q24H EVER Ondansetron HCl 4 mg 11/10/19 04:43 11/14/19 09:51 Zofran Inj IV PUSH 4 mg Q4H PRN Administration Nausea Ondansetron HCl 4 mg 11/15/19 15:56
[2019-11-16] MEDS: FAT EMULSIONS IV 20% 250 ML 20.8 ML IVPB (15:43)
--- NOTE | 2019-11-16 16:14 | PM.IMPN ---
Progress Note: A&P Assessment and Plan (1) Septic shock: Code(s): A41.9 - Sepsis, unspecified organism; R65.21 - Severe sepsis with septic shock Status: Acute Assessment and Plan: 11/16/19 16:14 patient is a 44-year-old female status post bariatric surgery as well as several abdominal surgery resulting in nonfunctional GI track and patient has been on TPN on and off for months patient has a port which is used for the TPN, patient presented emergency department with syncopal episode patient was found to have a fever hypotension, tachycardia leukocytosis initially patient was started on Zosyn and vancomycin for suspected pneumonia, blood culture was collected and patient is positive for fungal infection with C glabrata septicemia due to Port infection, patient is seen by Dr. cantu and started the patient on micafungin and will need IV antibiotics 10-14 days, patient also has a port, it needs to be removed before discharging the patient, patient may be transferred to [facility] for the port removal was initially placed, have them to remove it however patient does not wish to be transferred to the [facility]. patient has gastric ulcer and possibly fistula, she is seen by GI, will continue PPI, Currently patient denies any abdominal pain nausea or vomiting fever or chills, she has been NPO requesting ice chips, today patient states feeling better abdominal pain is persisting denies any fever or chills, will consult surgeon to remove the port, patient port was removed on 11/14, Dr. cantu recommending no poor for next 2 weeks, may continue triple-lumen for TPN, patient insisting and wants to eat, discussed with Dr. Allison, and call [facility] spoke with her surgeon Dr. Bedolla recommended once patient is clinically stable [facility] and to follow-up is scheduled next week with her strictly NPO until patient is seen by the surgeon. (2) Severe anemia: Code(s): D64.9 - Anemia, unspecified Status: Acute Assessment and Plan: r/o occult GI bleed given the patient has a history of PUD and multiple gastric ulcers w/ previous GI bleed in the past. She may also have severe anemia from low production from malnutrition. She does not appear to be hemolyzing as her platelets are not low. Continue pRBC transfusion. Monitor H/H, Continue IV PPI therapy. GI Consult today. (3) Leukocytosis: Qualifiers: Leukocytosis type: unspecified Qualified Code(s): D72.829 - Elevated white blood cell count, unspecified Code(s): D72.829 - Elevated white blood cell count, unspecified Status: Acute Assessment and Plan: Secondary to septic shock. Monitor CBCd. (4) Thrombocytosis: Code(s): D47.3 - Essential (hemorrhagic) thrombocythemia Status: Acute Assessment and Plan: Likely reactive from sepsis. Monitor platelets. (5) Hyponatremia: Code(s): E87.1 - Hypo-osmolality and hyponatremia Status: Acute Assessment and Plan: Monitor serum sodium. I suspect this will improve w/ IV fluids. (6) Hypokalemia: Code(s): E87.6 - Hypokalemia Status: Acute Assessment and Plan: Potassium replacement as needed. Monitor serum potassium. (7) Lactic acidosis: Code(s): E87.2 - Acidosis Status: Acute Assessment and Plan: Secondary to septic shock. Check reflex lactic acid. (8) Malnutrition: Qualifiers: Malnutrition type: unspecified type Qualified Code(s): E46 - Unspecified protein-calorie malnutrition Code(s): E46 - Unspecified protein-calorie malnutrition Status: Chronic Assessment and Plan: Continue TPN nutrition. (9) Chronic pain syndrome: Code(s): G89.4 - Chronic pain syndrome Status: Chronic Assessment and Plan: Resume home pain medications when appropriate. Subjective Date/time seen: 11/16/19 16:14 patient is a 44-year-old female status post bariatric surge
[2019-11-16] MEDS: LORAZEPAM INJ 2 MG/ML VIAL 0.5 MG IV PUSH (19:25)
--- NOTE | 2019-11-16 20:02 | PC.NURSE ---
Pt frustrated at bed alarm, not having fluids, being confined to bed. We allowed her to walk the square a couple times throughout the day. She stated that she was done with this and wanted to go hospice. I notified TARSHA Panchal, who got a hospice instruments sales representative to meet with her same day. Dr Fitzgerald reached out to Dr. Bedolla, the GI at [facility] seeing our pt, to see if we could resume fluids PO. Dr. Bedolla said that under no circumstances was she to receive anything by mouth. When I informed the pt, she was understandably upset. She was mad and shaking. After a few minutes, she stated that she wanted to kill herself, that she was going to kill herself right here and right now. I empathized with the pt and let her know that I would need to do a suicide risk assessment. She said she understood. She scored low but asked if she could have something for her nerves, that she usually takes something for them at home. I called Dr. Fitzgerald who said we could do 0.5mg ativan one time. Pt continues to state that she wants to go hospice.
[2019-11-16] MEDS: MICAFUNGIN SODIUM 100 MG in SODIUM CHLORIDE 0.9% IV 100 ML IVPB (20:21)
[2019-11-16 20:35] LABS: H pylori Ag Stool Not Detected (Not Detected)
[2019-11-16 20:53] LABS: Glucose Point of Care 92 (65-105)
[2019-11-16 22:30] VITALS: BP 108/66; PULSE 70; RESP 16; TEMP 36.9; O2SAT 96
[2019-11-17 00:21] LABS: Glucose Point of Care 95 (65-105)
[2019-11-17 06:07] LABS: Glucose Point of Care 92 (65-105)
[2019-11-17 06:17] VITALS: BP 102/60; PULSE 66; RESP 16; TEMP 36.3; O2SAT 96
[2019-11-17 06:49] LABS: Blood Urea Nitrogen 10 mg/dL (7-17); Calcium 7.9 mg/dL (8.4-10.2); Carbon Dioxide 21 mmol/L (22-30); Chloride 99 mmol/L (98-107); Estimated CRCL calculation 71 ml/min; Estimated Glomerular Filt Rate > 60; Glucose 736 mg/dL (65-105); Phosphorus 7.2 mg/dL (2.5-4.5); Potassium 5.4 mmol/L (3.4-5.0); Sodium 125 mmol/L (137-145)
[2019-11-17 08:29] LABS: Glucose 88 mg/dL (65-105)
[2019-11-17] MEDS: PANTOPRAZOLE SODIUM IV 40 MG VIAL IV PUSH (08:29)
--- NOTE | 2019-11-17 11:30 | PC.NURSE ---
Notified Dr. Ch that patient is going hospice, no new orders were obtained.
--- NOTE | 2019-11-17 11:41 | WPDGIPROGNO ---
Progress Note: A&P Additional Plan Patient alert more comfortable today. Remains on TPN. An also J-tube feedings. Physical exam reveals her to be alert. Poor dentition noted. Lungs are clear. Abdomen is soft nontender J-tube in left lower abdomen healing well. Impression 1. History of gastric bypass. 2. Gastric ulceration. Question of gastrocolic fistula appeared history of perigastric abscess is previously drained. 3. Fungal septicemia. PICC line recently removed. Plan to continue TPN and J-tube feedings. At the present we do not have enough information to safely resume oral intake. If patient remains under our care contrast studies of the GI tract would be required to further determine anatomy. My it understanding is that surgery was follow-up was anticipated to [facility]. Plan for ultimate follow-up at [facility] was discussed with Dr. Fitzgerald yesterday. Subjective Date/time seen: 11/17/19 11:41 Objective Data Vital Signs Vital Signs: Vital Signs - 24 hr 11/16/19 14:00 11/16/19 22:30 11/17/19 06:17 Temperature 36.4 C 36.9 C 36.3 C L Pulse Rate 70 70 66 Respiratory Rate 18 16 16 Blood Pressure 99/61 L 108/66 102/60 Pulse Oximetry 97 96 96 Intake/Output Intake/Output: Intake & Output 11/14/19 11/15/19 11/16/19 11/17/19 23:59 23:59 23:59 23:59 Intake Total 3105 1070 250 Output Total 2660 1075 1450 Balance 445 -5 -1200 Meds/Results Medications: Active Medications Generic Name Dose Route Start Last Admin Trade Name Freq PRN Reason Stop Dose Admin Fentanyl Citrate 12.5 mcg 11/11/19 12:53 11/17/19 08:29 Sublimaze IV PUSH 12.5 mcg Q4H PRN Administration Pain Rated 7-10 Fentanyl Citrate 25 mcg 11/15/19 15:56 Sublimaze IV PUSH Q2M PRN Pain Heparin Sodium (Beef Lung) 50 units 11/10/19 09:00 11/17/19 08:28 Heparin Flush 50 Units/5 Ml IV PUSH Not Given QAM EVER Heparin Sodium (Beef Lung) 50 units 11/10/19 07:52 Heparin Flush 50 Units/5 Ml IV PUSH PRN PRN after intermittent infusion Heparin Sodium (Beef Lung) 50 units 11/10/19 07:52 11/16/19 05:25 Heparin Flush 50 Units/5 Ml IV PUSH 50 units PRN PRN Administration after blood draws Heparin Sodium (Porcine) 500 units 11/10/19 07:52 Heparin Sod Flush 100 Units/Ml IV PUSH PRN PRN see comments below Dextrose 1,000 mls @ 50 mls/hr 11/11/19 10:05 Dextrose 10% IV CONT .Q20H PRN if PN is interrupted Multivitamins 5 ml/ Amino 2,005 mls @ 30 mls/hr 11/11/19 12:00 11/16/19 15:44 Acids/Electrolytes/Dextrose IV CONT 30 mls/hr .Q24H EVER Administration Protocol Fat Emulsion Intravenous 250 mls @ 20.833 mls/hr 11/11/19 12:00 11/17/19 03:45 Lipids 20% IVPB Infused Q24H EVER Infusion Micafungin Sodium 100 mg/ 100 mls @ 100 mls/hr 11/11/19 21:00 11/16/19 21:21 Sodium Chloride IVPB Infused Q24H EVER Infusion Lactated Ringer's 1,000 mls @ 30 mls/hr 11/15/19 15:55 11/16/19 20:21 Lr - Lactated Ringers Iv IV CONT Not Given .Q24H EVER Lactated Ringer's 1,000 mls @ 30 mls/hr 11/15/19 16:00 11/16/19 20:22 Lr - Lactated Ringers Iv IV CONT Not Given .Q24H EVER Ondansetron HCl 4 mg 11/10/19 04:43 11/14/19 09:51 Zofran Inj IV PUSH 4 mg Q4H PRN Administration Nausea Ondansetron HCl 4 mg 11/15/19 15:56 Zofran Inj IV PUSH ONCE PRN Nausea Pantoprazole Sodium 40 mg 11/10/19 09:00 11/17/19 08:29 Protonix Iv IV PUSH 40 mg Q12HR EVER Administration Radiology Results: ITS Impressions Head CT 11/09/19 23:58 IMPRESSION: No acute intracranial findings. Head/Cervical Spine/Facial Bones CT 11/10/19 00:02 IMPRESSION: 1. No acute facial or cervical fracture. 2. Some debris or blood within the nasal cavity. Chest/Abdomen/Pelvis CTA 11/10/19 08:23 IMPRESSION: 1. No aortic aneurysm or dissection. 2. Airspace disease in the left lower lobe with differential in
--- NOTE | 2019-11-17 12:01 | WPDINFPN2 ---
Progress Note: A&P Assessment and Plan (1) Septicemia due to fungus: Code(s): A41.89 - Other specified sepsis; B49 - Unspecified mycosis Status: Acute Assessment and Plan: 1. C glabrata septicemia due to Port infection, defervescing. Culture in process. 2. Lung infiltrates due to fluid overload, no pneumonia 3. Chronic TPN (4 weeks during most recent bout) 4. Past gastric bypass REC Micafungin # 7 / 10 days. No port replacement for at least 2 weeks. Redo BCs. If she is to enter hospice, then stop antifungal. Subjective Date/time seen: 11/17/19 12:01 Interval history: no new complaints Exam Narrative: Exam Narrative: afebrile Const: General: no acute distress Eyes: General: appearance normal, both eyes and all related structures Resp: Effort & Inspection: normal respiratory effort Auscultation: clear to auscultation bilaterally Cardio: Rate: regular rate Rhythm: regular rhythm Heart sounds: no murmurs GI: GI Palp: Yes Soft to palpation and No Tenderness to palpation present (GI) Skin: Other: old port site with swelling, no erythema no tenderness no warmth Objective Data Vital Signs Vital Signs: Vital Signs - 24 hr 11/16/19 14:00 11/16/19 22:30 11/17/19 06:17 Temperature 36.4 C 36.9 C 36.3 C L Pulse Rate 70 70 66 Respiratory Rate 18 16 16 Blood Pressure 99/61 L 108/66 102/60 Pulse Oximetry 97 96 96 Intake/Output Intake/Output: Intake & Output 11/14/19 11/15/19 11/16/19 11/17/19 23:59 23:59 23:59 23:59 Intake Total 3105 1070 250 Output Total 2660 1075 1450 Balance 445 -5 -1200 Meds/Results Medications: Active Medications Generic Name Dose Route Start Last Admin Trade Name Freq PRN Reason Stop Dose Admin Fentanyl Citrate 12.5 mcg 11/11/19 12:53 11/17/19 08:29 Sublimaze IV PUSH 12.5 mcg Q4H PRN Administration Pain Rated 7-10 Fentanyl Citrate 25 mcg 11/15/19 15:56 Sublimaze IV PUSH Q2M PRN Pain Heparin Sodium (Beef Lung) 50 units 11/10/19 09:00 11/17/19 08:28 Heparin Flush 50 Units/5 Ml IV PUSH Not Given QAM EVER Heparin Sodium (Beef Lung) 50 units 11/10/19 07:52 Heparin Flush 50 Units/5 Ml IV PUSH PRN PRN after intermittent infusion Heparin Sodium (Beef Lung) 50 units 11/10/19 07:52 11/16/19 05:25 Heparin Flush 50 Units/5 Ml IV PUSH 50 units PRN PRN Administration after blood draws Heparin Sodium (Porcine) 500 units 11/10/19 07:52 Heparin Sod Flush 100 Units/Ml IV PUSH PRN PRN see comments below Dextrose 1,000 mls @ 50 mls/hr 11/11/19 10:05 Dextrose 10% IV CONT .Q20H PRN if PN is interrupted Multivitamins 5 ml/ Amino 2,005 mls @ 30 mls/hr 11/11/19 12:00 11/16/19 15:44 Acids/Electrolytes/Dextrose IV CONT 30 mls/hr .Q24H EVER Administration Protocol Fat Emulsion Intravenous 250 mls @ 20.833 mls/hr 11/11/19 12:00 11/17/19 03:45 Lipids 20% IVPB Infused Q24H EVER Infusion Micafungin Sodium 100 mg/ 100 mls @ 100 mls/hr 11/11/19 21:00 11/16/19 21:21 Sodium Chloride IVPB Infused Q24H EVER Infusion Lactated Ringer's 1,000 mls @ 30 mls/hr 11/15/19 15:55 11/16/19 20:21 Lr - Lactated Ringers Iv IV CONT Not Given .Q24H EVER Lactated Ringer's 1,000 mls @ 30 mls/hr 11/15/19 16:00 11/16/19 20:22 Lr - Lactated Ringers Iv IV CONT Not Given .Q24H EVER Ondansetron HCl 4 mg 11/10/19 04:43 11/14/19 09:51 Zofran Inj IV PUSH 4 mg Q4H PRN Administration Nausea Ondansetron HCl 4 mg 11/15/19 15:56 Zofran Inj IV PUSH ONCE PRN Nausea Pantoprazole Sodium 40 mg 11/10/19 09:00 11/17/19 08:29 Protonix Iv IV PUSH 40 mg Q12HR EVER Administration Radiology Results: ITS Impressions Head CT 11/09/19 23:58 IMPRESSION: No acute intracranial findings. Head/Cervical Spine/Facial Bones CT 11/10/19 00:02 IMPRESSION: 1. No acute facial or cervical fracture. 2. Some debr
--- NOTE | 2019-11-17 15:18 | PCPTNOTE ---
Attempted to see pt for PT eval. Pt already discharged.
--- NOTE | 2019-11-17 16:15 | PM.DS ---
DS: Diagnosis Admitting Diagnosis Admitting Diagnosis: Sepsis, unspecified organism Discharge Diagnosis (1) Septic shock: Code(s): A41.9 - Sepsis, unspecified organism; R65.21 - Severe sepsis with septic shock Status: Acute Assessment and Plan: Patient is a 44-year-old female status post bariatric surgery as well as several abdominal surgery resulting in nonfunctional GI track and patient has been on TPN on and off for months patient has a port which is used for the TPN, patient presented emergency department with syncopal episode patient was found to have a fever hypotension, tachycardia leukocytosis initially patient was started on Zosyn and vancomycin for suspected pneumonia, blood culture was collected and patient is positive for fungal infection with C glabrata septicemia due to Port infection, patient is seen by Dr. Ch, who started the patient on micafungin and will need IV antibiotics 10-14 days, patient also has a port, it needs to be removed before discharging the patient, patient may be transferred to [facility] for the port removal was initially placed, have them to remove it however patient does not wish to be transferred to the [place]. patient has gastric ulcer and possibly fistula, she is seen by GI, will continue PPI, Currently patient denies any abdominal pain nausea or vomiting fever or chills, she has been NPO requesting ice chips, surgeon to remove the port, patient port was removed on 11/14, Dr. Ch recommending no food for next 2 weeks, may continue triple-lumen for TPN, patient insisting and wants to eat, discussed with Dr. Bello, and call [facility] spoke with her surgeon Dr. Bedolla recommended once patient is clinically stable to discharge to shelter. Port a cath removed by surgery on 11/14 See previous notes, today, pt wants to go home with hospice care. Pt started on clear diet prior to discharge and dickinson catheter removed. Discussed case with Dr Ch prior to discharge. Pt discharged with J tube (2) Severe anemia: Code(s): D64.9 - Anemia, unspecified Status: Acute Assessment and Plan: r/o occult GI bleed given the patient has a history of PUD and multiple gastric ulcers w/ previous GI bleed Sp pRBC transfusion and iv PPI. Pt wants to go hospice. (3) Leukocytosis: Qualifiers: Leukocytosis type: unspecified Qualified Code(s): D72.829 - Elevated white blood cell count, unspecified Code(s): D72.829 - Elevated white blood cell count, unspecified Status: Acute Assessment and Plan: Secondary to septic shock. Pt wants to go hospice. (4) Thrombocytosis: Code(s): D47.3 - Essential (hemorrhagic) thrombocythemia Status: Acute Assessment and Plan: Likely reactive from sepsis. Pt wants to go hospice. (5) Hyponatremia: Code(s): E87.1 - Hypo-osmolality and hyponatremia Status: Acute Assessment and Plan: Pt wants to go hospice. (6) Hypokalemia: Code(s): E87.6 - Hypokalemia Status: Acute Assessment and Plan: Pt wants to go hospice. (7) Lactic acidosis: Code(s): E87.2 - Acidosis Status: Resolved Assessment and Plan: Secondary to septic shock. Pt wants to go hospice. (8) Malnutrition: Qualifiers: Malnutrition type: unspecified type Qualified Code(s): E46 - Unspecified protein-calorie malnutrition Code(s): E46 - Unspecified protein-calorie malnutrition Status: Chronic Assessment and Plan: Pt is started on clears prior to discharge, hospice to decide on TPN later. (9) Chronic pain syndrome: Code(s): G89.4 - Chronic pain syndrome Status: Chronic Assessment and Plan: Resume home pain medications when appropriate. Pt wants to go hospice. DS: Summary Time Spent with Patient Time attestation: Total time spent providing and/or coordinating discharge services:38 minutes on day of discharge.
== END 2019-11-17 15:15 | disposition hospice, home (50) | DRG 721 ==
LOC: ANHED 23:18 → ANHICU 11-10 07:05 → ANH3MEDSUR 11-14 11:29 → ANHICU 11-18 09:43
PROVIDERS: Family Medicine; Internal Medicine; Internal Medicine Gastroenterology; Surgery; Admitting Provider Family Medicine; Emergency Provider General Practice; Visit Provider Family Medicine
PROC: 0DJ08ZZ Inspection of Upper Intestinal Tract, Via Natural or Artificial Opening Endoscopic (ICD-10-PCS; CPT 43235; principal; 2019-11-11 10:30)
PROC: 0JPT0WZ Removal of Totally Implantable Vascular Access Device from Trunk Subcutaneous Tissue and Fascia, Open Approach (ICD-10-PCS; CPT 36589; principal; 2019-11-15 16:30)
DX: T80.211A Bloodstream infection due to central venous catheter, initial encounter (principal); B37.7 Candidal sepsis; R65.21 Severe sepsis with septic shock; K25.7 Chronic gastric ulcer without hemorrhage or perforation; K31.6 Fistula of stomach and duodenum; D53.9 Nutritional anemia, unspecified; E43 Unspecified severe protein-calorie malnutrition; Z68.1 Body mass index [BMI] 19.9 or less, adult; E87.6 Hypokalemia; W19.XXXA Unspecified fall, initial encounter; G89.4 Chronic pain syndrome; E87.79 Other fluid overload; Z98.84 Bariatric surgery status; Z87.891 Personal history of nicotine dependence; E87.2 Acidosis; E87.1 Hypo-osmolality and hyponatremia; D47.3 Essential (hemorrhagic) thrombocythemia; D72.829 Elevated white blood cell count, unspecified
CPT/HCPCS: 36415; 36430; 36569; 70450; 70486; 71045; 71275; 72125; 74174; 80048; 80053; 80202; 80307; 81001; 82274; 82947; 83605; 83735; 84100; 84466; 84478; 85014; 85018; 85025; 85610; 85730; 86850; 86900; 86901; 86923; 87040; 87045; 87046; 87081; 87086; 87103; 87106; 87338; 87427; 88300; 93005; 96361; 96365; 96367; 97165; 99285; C1751; C9113; J0131; J0171; J0690; J1100; J1642; J2060; J2248; J2250; J2405; J2543; J2704; J3010; J3370; J3475; J3480; J7040; J7042; J7050; J7120; P9016; Q9967